=== PATIENT | male | born 1935 | race Caucasian/White ===

== ENCOUNTER 2017-02-25 17:36 | Inpatient (IN) | payer MEDICARE, OTHER ==
[~2017-02-25] VITALS: Ht 167.6 cm; Wt 101.2 kg
[2017-02-25] MEDS ORDERED: FUROSEMIDE 40 MG/4 ML VIAL IV ONE (18:30)
[2017-02-25 18:32] LABS: BASOPHILS # (AUTO) 0.1 /CMM (0.0-0.2); BASOPHILS % (AUTO) 0.6 % (0.0-2.0); EOSINOPHILS # (AUTO) 0.2 /CMM (0.0-0.7); HEMATOCRIT 38 % (39-51); HEMOGLOBIN 11.9 g/dL (13.5-17.5); LYMPHOCYTES # (AUTO) 1.8 /CMM (0.8-4.8); LYMPHOCYTES % (AUTO) 19.1 % (20.0-44.0); MEAN CORPUSCULAR HEMOGLOBIN 28 PG (26.0-33.0); MEAN CORPUSCULAR HGB CONC 32 g/dl (31.0-36.0); MEAN CORPUSCULAR VOLUME 89 fL (80-96); MONOCYTES # (AUTO) 0.8 /CMM (0.1-1.30); MONOCYTES % (AUTO) 8.1 % (2.0-12.0); NEUTROPHILS # (AUTO) 6.7 /CMM (1.8-8.9); NEUTROPHILS % (AUTO) 70.2 % (43.0-81.0); PLATELET COUNT (AUTO) 226 /CMM (150-450); RDW COEFFICIENT OF VARIATION 16.5 (11.5-15.0); RED BLOOD CELL COUNT(AUTO) 4.24 MIL/uL (4.5-6.0); WHITE BLOOD COUNT (AUTO) 9.6 K/uL (4.3-11.0)
[2017-02-25] MEDS ORDERED: FUROSEMIDE 40 MG/4 ML VIAL ONE (18:33)
[2017-02-25 18:36] LABS: CREATININE 1.4 mg/dL (0.6-1.3); POTASSIUM 3.8 mmol/L (3.5-5.1)
[2017-02-25 18:45] LABS: TROPONIN I 0.026 ng/mL (0.00-0.056)
[2017-02-25 18:50] LABS: ALBUMIN 3.7 g/dL (3.4-5.0); BILIRUBIN,DIRECT 0.1 mg/dL (0.0-0.2); BILIRUBIN,TOTAL 0.6 mg/dL (0.2-1.0); TOTAL PROTEIN, SERUM 7.8 g/dL (6.4-8.2)
[2017-02-25 19:08] LABS: INR 1.03 (0.87-1.13)
--- NOTE | 2017-02-25 19:10 | NUR ---
RECEIVED REPORT FROM GAMA PEOPLES. PT AOX3 TAJIK SPEAKING. RR EVEN AND UNLABORED. NO SOB NOTED AT THIS TIME. PT APPEARS TO BE COMFORTABLE.
--- NOTE | 2017-02-25 19:14 | NUR ---
AYNAA KATHLEEN AT BEDSIDE FOR EVAL.
[2017-02-25 20:00] VITALS: BP 134/85
[2017-02-25] MEDS ORDERED: ALBUTEROL HALF STRENGTH 1.25 MG/3 ML VIAL.NEB NEB PRN (20:00)
[2017-02-25] MEDS ORDERED: DEXTROSE 50%-WATER 50 ML DISP.SYRIN IV PRN (20:00)
[2017-02-25] MEDS ORDERED: ONDANSETRON HCL/PF 4 MG/2 ML VIAL IVP PRN (20:00)
[2017-02-25] MEDS ORDERED: TEMAZEPAM 15 MG CAPSULE PO PRN (20:00)
[2017-02-25] MEDS ORDERED: MAG HYDROX/AL HYDROX/SIMETH 30 ML UDC PO PRN (20:00)
[2017-02-25] MEDS ORDERED: MAGNESIUM HYDROXIDE 30 ML UDC PO PRN (20:00)
--- NOTE | 2017-02-25 20:15 | NUR ---
RN ADMITTING NOTES RECEIVED REPORT FROM ER, GAMA YOUNGBLOOD. Pt ARRIVED TO FLOOR VIA GURNEY. Pt IS AWAKE AND ALERT, IN BED. A/OX3, CHILEAN SPEAKING ONLY. NO S/S OF ACUTE DISTRESS OR SEVERE SOB NOTED. ON 2L NC. Pt IS MOBILE, AND AMBULATORY WITH WALKER. IV ACCESS ON R HAND #20G, SL. SAFETY MEASURES IN PLACE. BED LOW, LOCKED, HOB ELEVATED, SIDE RAILS UP, CALL LIGHT AND BEDSIDE TABLE WITHIN REACH. WILL CONTINUE TO MONITOR Pt THROUGHOUT THE NIGHT FOR SAFETY.
[2017-02-25 20:20] VITALS: BP 134/85
--- NOTE | 2017-02-25 22:00 | NUR ---
ACCUCHECK BG 207. ADMINISTERED 4UN OF INSULIN PER SLIDING SCALE. PROVIDED SNACKS AT BEDSIDE.
[2017-02-25] MEDS: BLOOD SUGAR DIAGNOSTIC 1 EACH STRIP IN SCH (22:56)
[2017-02-25] MEDS: FUROSEMIDE 100 MG/10 ML VIAL IV SCH (22:58)
[2017-02-25] MEDS: INSULIN REGULAR, HUMAN 100 UNIT/ML 3 ML VIAL SQ PRN (23:05)
--- NOTE | 2017-02-25 23:42 | NUR ---
Pt REFUSING RECINOS CATHETER INSERTION. SAID HE PREFERS TO USE HIS WALKER AND USE THE TOILET IN THE RESTROOM INSTEAD. EXPLAINED TO Pt THAT THE LASIX GIVEN EARLIER WILL MAKE HIM URINATE MUCH MORE, AND THAT FOR HIS SAFETY, PLACING A RECINOS CATHETER WOULD BE BETTER, BUT Pt STILL REFUSED THE RECINOS. PLACED BED SIDE COMMODE AND URINAL NEXT TO Pt INSTEAD. INFORMED Pt TO USE THEM IN CASE OF EMERGENCY IF HE CAN'T MAKE IT TO THE RESTROOM IN TIME.
[2017-02-26] VITALS: BP 113/63
[2017-02-26] MEDS: FUROSEMIDE 100 MG/10 ML VIAL IV SCH ×3 (03:29→14:17)
[2017-02-26 04:25] VITALS: BP 124/72
--- NOTE | 2017-02-26 06:30 | NUR ---
ACCUCHECK BG 141. ADMINISTERED 2UN OF INSULIN PER SLIDING SCALE.
--- NOTE | 2017-02-26 06:35 | NUR ---
RN CLOSING NOTES NO SIGNIFICANT CHANGES DURING THE NIGHT. NO S/S OF ACUTE DISTRESS OR SOB NOTED. ALL NEEDS MET AND ATTENDED TO. SAFETY MEASURES IN PLACE. WILL ENDORSE TO DAYSHIFT RN FOR Pt's CAROLYN. TELE READING AFIB 80's-90's.
[2017-02-26] MEDS: INSULIN REGULAR, HUMAN 100 UNIT/ML 3 ML VIAL SQ PRN ×3 (06:40→22:36)
[2017-02-26] MEDS: BLOOD SUGAR DIAGNOSTIC 1 EACH STRIP IN SCH ×4 (06:42→22:36)
[2017-02-26 06:45] LABS: BASOPHILS # (AUTO) 0.1 /CMM (0.0-0.2); BASOPHILS % (AUTO) 0.9 % (0.0-2.0); EOSINOPHILS # (AUTO) 0.2 /CMM (0.0-0.7); EOSINOPHILS % (AUTO) 2.8 % (0.0-6.0); HEMATOCRIT 38 % (39-51); HEMOGLOBIN 11.9 g/dL (13.5-17.5); LYMPHOCYTES # (AUTO) 1.9 /CMM (0.8-4.8); LYMPHOCYTES % (AUTO) 21.6 % (20.0-44.0); MEAN CORPUSCULAR HEMOGLOBIN 28 PG (26.0-33.0); MEAN CORPUSCULAR HGB CONC 32 g/dl (31.0-36.0); MEAN CORPUSCULAR VOLUME 89 fL (80-96); MONOCYTES # (AUTO) 0.7 /CMM (0.1-1.30); MONOCYTES % (AUTO) 7.9 % (2.0-12.0); NEUTROPHILS # (AUTO) 5.8 /CMM (1.8-8.9); NEUTROPHILS % (AUTO) 66.8 % (43.0-81.0); PLATELET COUNT (AUTO) 218 /CMM (150-450); RDW COEFFICIENT OF VARIATION 16.2 (11.5-15.0); RED BLOOD CELL COUNT(AUTO) 4.23 MIL/uL (4.5-6.0); WHITE BLOOD COUNT (AUTO) 8.6 K/uL (4.3-11.0)
[2017-02-26 06:51] LABS: TROPONIN I 0.033 ng/mL (0.00-0.056)
[2017-02-26 07:07] LABS: CREATININE 1.2 mg/dL (0.6-1.3); PHOSPHORUS 3.8 mg/dL (2.5-4.9); POTASSIUM 3.4 mmol/L (3.5-5.1)
[2017-02-26 07:08] LABS: THYROID STIMULATING HORMONE 5.738 uIU/mL (0.358-3.74)
[2017-02-26 07:21] LABS: DIGOXIN 0.58 ng/mL (0.90-2.00)
[2017-02-26] MEDS: PANTOPRAZOLE 40 MG TABLET.DR PO SCH (07:38)
[2017-02-26 08:00] VITALS: BP 122/69
--- NOTE | 2017-02-26 08:00 | NUR ---
RESIDENCY PROGRAM COORDINATOR AM NOTES RECEIVED PT AWAKE AND ALERT, IN BED. A/OX3, IRAQI SPEAKING ONLY. NO S/S OF ACUTE DISTRESS OR SEVERE SOB NOTED. ON 2L NC. Pt IS MOBILE, AND AMBULATORY WITH WALKER. IV ACCESS ON R HAND #20G, SL. SAFETY MEASURES IN PLACE. BED LOW, LOCKED, HOB ELEVATED, SIDE RAILS UP, CALL LIGHT AND BEDSIDE TABLE WITHIN REACH. WILL CONTINUE TO MONITOR Pt THROUGHOUT THE NIGHT FOR SAFETY.
[2017-02-26] MEDS: LEVOTHYROXINE SODIUM 75 MCG TABLET PO SCH (08:26)
[2017-02-26] MEDS ORDERED: FUROSEMIDE 80 MG TABLET PO SCH (09:00)
[2017-02-26] MEDS ORDERED: FUROSEMIDE 40 MG/4 ML VIAL IV SCH (09:00)
[2017-02-26] MEDS ORDERED: INSU100I4 SQ (09:06)
[2017-02-26] MEDS ORDERED: DIGO125T PO (09:06)
[2017-02-26] MEDS ORDERED: LEVO75TA7 PO (09:06)
[2017-02-26] MEDS ORDERED: WARF3TAB29 PO (09:06)
[2017-02-26] MEDS ORDERED: FURO-144 PO (09:06)
[2017-02-26] MEDS ORDERED: HYDR-4077 PO (09:06)
[2017-02-26] MEDS: POTASSIUM CHLORIDE 20 MEQ TAB.PRT.SR PO SCH ×3 (11:14→14:17)
--- NOTE | 2017-02-26 14:27 | NUR ---
PT ALREADY RECEIVED AND COMPLETED K DUR 20 MEQ PO X3 DOSES
[2017-02-26] MEDS ORDERED: POTASSIUM CHLORIDE 20 MEQ TAB.PRT.SR PO SCH (15:00)
[2017-02-26 16:00] VITALS: BP 125/62
[2017-02-26] MEDS ORDERED: WARFARIN SODIUM 1 MG TABLET PO SCH (17:00)
[2017-02-26] MEDS ORDERED: RIVAROXABAN 10 MG TABLET PO SCH (17:00)
[2017-02-26] MEDS: hydrALAZINE HCL 50 MG TABLET PO SCH (17:23)
[2017-02-26] MEDS: RIVAROXABAN 10 MG TABLET PO SCH (17:30)
[2017-02-26] MEDS: INSULIN LISPRO/ASPART 100 UNIT/ML CARTRIDGE SQ SCH (17:32)
--- NOTE | 2017-02-26 19:11 | NUR ---
PT RESTING IN BED DENYING ANY PAIN OR DISTRESS.
--- NOTE | 2017-02-26 19:30 | NUR ---
MS RN NOTES RECEIVED PT IN BED, ASLEEP, EASY TO AROUSE. NO ACUTE RESP. DISTRESS NOTED. ALERT AND ORIENTED. RIGHT HAND IV ACCESS NOTED, INTACT AND PATENT. CLEAN AND DRY. WILL CONT. TO MONITOR.
[2017-02-26 20:00] VITALS: BP 101/51
[2017-02-27] MEDS: PANTOPRAZOLE 40 MG TABLET.DR PO SCH (06:11)
[2017-02-27] MEDS: LEVOTHYROXINE SODIUM 75 MCG TABLET PO SCH (06:11)
[2017-02-27] MEDS: BLOOD SUGAR DIAGNOSTIC 1 EACH STRIP IN SCH ×4 (06:11→22:00)
[2017-02-27] MEDS: ACETAMINOPHEN 325 MG TABLET PO PRN (06:15)
[2017-02-27 06:38] LABS: BASOPHILS # (AUTO) 0.1 /CMM (0.0-0.2); BASOPHILS % (AUTO) 0.9 % (0.0-2.0); EOSINOPHILS # (AUTO) 0.4 /CMM (0.0-0.7); EOSINOPHILS % (AUTO) 3.8 % (0.0-6.0); HEMATOCRIT 38 % (39-51); LYMPHOCYTES # (AUTO) 2.2 /CMM (0.8-4.8); LYMPHOCYTES % (AUTO) 20.3 % (20.0-44.0); MEAN CORPUSCULAR HEMOGLOBIN 28 PG (26.0-33.0); MEAN CORPUSCULAR HGB CONC 32 g/dl (31.0-36.0); MEAN CORPUSCULAR VOLUME 89 fL (80-96); MONOCYTES # (AUTO) 0.8 /CMM (0.1-1.30); MONOCYTES % (AUTO) 7.4 % (2.0-12.0); NEUTROPHILS # (AUTO) 7.2 /CMM (1.8-8.9); NEUTROPHILS % (AUTO) 67.6 % (43.0-81.0); PLATELET COUNT (AUTO) 242 /CMM (150-450); RDW COEFFICIENT OF VARIATION 16.1 (11.5-15.0); RED BLOOD CELL COUNT(AUTO) 4.25 MIL/uL (4.5-6.0); WHITE BLOOD COUNT (AUTO) 10.6 K/uL (4.3-11.0)
[2017-02-27 06:58] LABS: ALBUMIN 3.3 g/dL (3.4-5.0); BILIRUBIN,TOTAL 0.6 mg/dL (0.2-1.0); CALCIUM, SERUM 8.7 mg/dL (8.5-10.1); CREATININE 1.4 mg/dL (0.6-1.3); MAGNESIUM 1.6 mg/dL (1.8-2.4); PHOSPHORUS 3.5 mg/dL (2.5-4.9); TOTAL PROTEIN, SERUM 7.1 g/dL (6.4-8.2)
--- NOTE | 2017-02-27 07:26 | NUR ---
MS RN NOTES PT RESTING WELL. NO SIGNIFICANT CHANGES NOTED. ALL NEEDS ATTENDED PROMPTLY. WILL ENDORSE TO THE NEXT SHIFT.
[2017-02-27] MEDS ORDERED: LEVOTHYROXINE SODIUM 75 MCG TABLET PO SCH (07:30)
[2017-02-27 08:00] VITALS: BP 121/68
--- NOTE | 2017-02-27 08:00 | NUR ---
MS RN AM NOTES RECEIVED PT AWAKE AND ALERT, IN BED. A/OX3, GUAMANIAN SPEAKING ONLY. NO S/S OF ACUTE DISTRESS OR SEVERE SOB NOTED. ON 2L NC. Pt IS MOBILE, AND AMBULATORY WITH WALKER. IV ACCESS ON R HAND #20G, SL. SAFETY MEASURES IN PLACE. BED LOW, LOCKED, HOB ELEVATED, SIDE RAILS UP, WITH BRP ON HIS OWN USING HIS FWW.CALL LIGHT AND BEDSIDE TABLE WITHIN REACH. WILL CONTINUE TO MONITOR .
[2017-02-27] MEDS: INSULIN LISPRO/ASPART 100 UNIT/ML CARTRIDGE SQ SCH ×3 (08:34→17:28)
[2017-02-27] MEDS: hydrALAZINE HCL 50 MG TABLET PO SCH ×2 (08:35→17:00)
[2017-02-27] MEDS: DIGOXIN 0.125 MG TABLET PO SCH (08:36)
[2017-02-27] MEDS: FUROSEMIDE 40 MG TABLET PO SCH (08:36)
[2017-02-27] MEDS ORDERED: IV SET PRIMARY PUMP SET 1 EA INFUS.SET MC ONE (10:16)
[2017-02-27] MEDS: Magnesium 1GM/D5W 100ML PREMIX 100 ML IV SCH ×2 (10:22→12:51)
--- NOTE | 2017-02-27 10:38 | NUR ---
PT'S O2 SAT RANGES FROM 90-91%ON ROOM AIR AFTER ONE HOUR.PT AMBULATES TO THE TOILET ON HIS OWN USING FWW.PT DENIES DISTRESS WHILE IN ROOM AIR.
[2017-02-27 11:30] VITALS: BP_SYST 101; BP_SYST 109; BP_SYST 113; BP_DIAS 63; BP_DIAS 64; BP_DIAS 69
[2017-02-27] MEDS: INSULIN REGULAR, HUMAN 100 UNIT/ML 3 ML VIAL SQ PRN ×3 (12:54→23:15)
[2017-02-27 16:00] VITALS: BP 107/62
[2017-02-27 17:11] VITALS: BP 107/62
[2017-02-27] MEDS: RIVAROXABAN 10 MG TABLET PO SCH (17:30)
--- NOTE | 2017-02-27 18:55 | NUR ---
PT SITTING IN BED WITH O2 SAT OF 90-91% ON ROOM AIR DENYING ANY PAIN OR DISTRESS.
--- NOTE | 2017-02-27 19:15 | NUR ---
MS/SHREDDED FILLER MACHINE WRAPPER LAYER; RECEIVED PT FROM THE DAY SHIFT RN FOR CONTINUITY OF CARE. AT THIS TIME PT. IN BED SLEEPING. BREATHING NON LABORED. NO S/S DISTRESS. BED ON LOWER POSITION AND LOCKED FOR SAFETY. SIDE RAILS ARE UP FOR SAFETY. HL INTACT ON RH. CONTINUE TO MONITOR. CALL LIGHT WITHIN REACH.
[2017-02-27] MEDS ORDERED: RIVA10TA PO (19:37)
[2017-02-27] MEDS ORDERED: GABA100C PO (19:37)
[2017-02-27 20:00] VITALS: BP 105/54
--- NOTE | 2017-02-27 20:00 | NUR ---
MS/WAREHOUSE INCENTIVE SELECTOR; CHARGE NURSE INFORMED WITH NEW ORDER FOR DC. I TOLD THE PT ABOUT THE DC ORDER TONIGHT BUT PT REFUSED HE SAID THAT THE MD TOLD HIM TO DC TOMORROW. CN SAID TO CALL MD.
--- NOTE | 2017-02-27 20:10 | NUR ---
MS/TECHNICAL STAFF ENGINEER; I PLACED A CALL TO MAHNAZ MORAN NP AND I NOTIFIED HIM THAT DR. MAJOR WITH ORDER FOR DC BUT PT REFUSED BECAUSE PT SAID THE MD TOLD HIM TO GO HOME TOMORROW AND MAHNAZ MORAN NP SAID OK.
[2017-02-27] MEDS ORDERED: GABAPENTIN 100 MG CAPSULE PO SCH (22:00)
--- NOTE | 2017-02-27 22:00 | NUR ---
MS/PAPER PRODUCTS PRINTER; BS 156 COVERED WITH REGULAR INSULIN 2 UNITS SQ.
[2017-02-28] MEDS: ACETAMINOPHEN 325 MG TABLET PO PRN (05:47)
[2017-02-28 06:00] VITALS: BP_SYST 118; BP_SYST 130; BP_SYST 138; BP_DIAS 63; BP_DIAS 73; BP_DIAS 76
--- NOTE | 2017-02-28 06:00 | NUR ---
MS/APPLE PACKING HEADER; BS 140 COVERED WITH REGULAR INSULIN 2 UNITS SQ.
[2017-02-28] MEDS: BLOOD SUGAR DIAGNOSTIC 1 EACH STRIP IN SCH ×2 (06:15→12:40)
[2017-02-28] MEDS: INSULIN REGULAR, HUMAN 100 UNIT/ML 3 ML VIAL SQ PRN ×2 (06:29→12:48)
[2017-02-28 06:31] LABS: BASOPHILS # (AUTO) 0.1 /CMM (0.0-0.2); BASOPHILS % (AUTO) 0.6 % (0.0-2.0); EOSINOPHILS # (AUTO) 0.3 /CMM (0.0-0.7); EOSINOPHILS % (AUTO) 3.2 % (0.0-6.0); HEMATOCRIT 38 % (39-51); HEMOGLOBIN 12.4 g/dL (13.5-17.5); LYMPHOCYTES # (AUTO) 2.2 /CMM (0.8-4.8); MEAN CORPUSCULAR HEMOGLOBIN 29 PG (26.0-33.0); MEAN CORPUSCULAR HGB CONC 32 g/dl (31.0-36.0); MEAN CORPUSCULAR VOLUME 88 fL (80-96); MONOCYTES # (AUTO) 0.7 /CMM (0.1-1.30); MONOCYTES % (AUTO) 7.4 % (2.0-12.0); NEUTROPHILS # (AUTO) 6.1 /CMM (1.8-8.9); NEUTROPHILS % (AUTO) 64.8 % (43.0-81.0); PLATELET COUNT (AUTO) 226 /CMM (150-450); RDW COEFFICIENT OF VARIATION 15.8 (11.5-15.0); RED BLOOD CELL COUNT(AUTO) 4.32 MIL/uL (4.5-6.0); WHITE BLOOD COUNT (AUTO) 9.4 K/uL (4.3-11.0)
[2017-02-28 06:35] LABS: CALCIUM, SERUM 8.7 mg/dL (8.5-10.1); CREATININE 1.4 mg/dL (0.6-1.3); MAGNESIUM 2.2 mg/dL (1.8-2.4); POTASSIUM 4.1 mmol/L (3.5-5.1)
--- NOTE | 2017-02-28 07:00 | NUR ---
MS/SCHOOL TRANSPORTATION DIRECTOR; SLEPT FAIRLY. BREATHING NON LABORED. WAS GIVEN TYLENOL 650 MG PO AT 0547 FOR GEN. PAIN. WILL ENDORSE TO THE DAY SHIFT NURSE.
--- NOTE | 2017-02-28 07:41 | NUR ---
RN OPEN NOTES RECEIVED REPORT FROM BUSINESS PROCESS MODELER NURSE. WILL CONTINUE TO MONITOR AND ASSESS PATIENT THROUGHOUT MY SHIFT
[2017-02-28 08:00] VITALS: BP 113/68
[2017-02-28 08:12] VITALS: BP 113/68
[2017-02-28] MEDS: hydrALAZINE HCL 50 MG TABLET PO SCH (08:12)
[2017-02-28] MEDS: PANTOPRAZOLE 40 MG TABLET.DR PO SCH (08:12)
[2017-02-28] MEDS: FUROSEMIDE 40 MG TABLET PO SCH (08:12)
[2017-02-28] MEDS: LEVOTHYROXINE SODIUM 75 MCG TABLET PO SCH (08:13)
[2017-02-28] MEDS: DIGOXIN 0.125 MG TABLET PO SCH (08:14)
[2017-02-28] MEDS: INSULIN LISPRO/ASPART 100 UNIT/ML CARTRIDGE SQ SCH ×2 (08:17→12:43)
--- NOTE | 2017-02-28 15:06 | NUR ---
AUTOCAD DETAILER NOTES PATIENT DISCHARGE ORDERS RECEIVED AND CARRY OUT. ALL DISCHARGE INFO EXPLAINED TO DAUGHTERSADE. PERSONAL BELONGING WITH PATIENT AT TIME OF DISCHARGE. PATIENT VITAL SIGNS ARE STABLE. PATIENT IS BEING DISCHARGE IN A STABLE CONDITION. NO SIGNS AND SYMPTOMS OF DISTRESS. NEW MEDICATION WAS GIVEN TO DAUGHTER. IV SITE REMOVED. ID BAND REMOVED. PATIENT WAS TRANSPORTED TO [facility] WITH AN RN AND A MUD ANALYSIS WELL LOGGING CAPTAIN VIA A WHEELCHAIR. PATIENT TRANSPORTED HOME VIA A PRIVATE CARE ACCOMPANIED BY HIS DAUGHTERSADE.
== END 2017-02-28 15:00 | disposition home or self-care (01) | DRG 291 ==
LOC: ER 17:39 → TELE 19:26 → MED 02-26 09:18
PROVIDERS: ADMIT Nurse Practitioner Acute Care; ATTEND Nurse Practitioner Acute Care
DX: I13.0 Hypertensive heart and chronic kidney disease with heart failure and stage 1 through stage 4 chronic kidney disease, or unspecified chronic kidney disease (principal); I50.23 Acute on chronic systolic (congestive) heart failure; D68.59 Other primary thrombophilia; N17.9 Acute kidney failure, unspecified; E87.0 Hyperosmolality and hypernatremia; D64.9 Anemia, unspecified; E11.22 Type 2 diabetes mellitus with diabetic chronic kidney disease; N18.9 Chronic kidney disease, unspecified; I25.10 Atherosclerotic heart disease of native coronary artery without angina pectoris; I48.91 Unspecified atrial fibrillation; E66.01 Morbid (severe) obesity due to excess calories; Z68.36 Body mass index [BMI] 36.0-36.9, adult; Z95.1 Presence of aortocoronary bypass graft; J44.9 Chronic obstructive pulmonary disease, unspecified; M19.90 Unspecified osteoarthritis, unspecified site; E78.5 Hyperlipidemia, unspecified; E03.9 Hypothyroidism, unspecified; E87.6 Hypokalemia; M79.89 Other specified soft tissue disorders; F32.9 Major depressive disorder, single episode, unspecified; G47.33 Obstructive sleep apnea (adult) (pediatric); G62.9 Polyneuropathy, unspecified; I34.0 Nonrheumatic mitral (valve) insufficiency; Z79.01 Long term (current) use of anticoagulants; Z87.891 Personal history of nicotine dependence; Z98.84 Bariatric surgery status
CPT/HCPCS: 36415; 71010-TC; 80048-TC; 80053-TC; 80061-TC; 80076-TC; 80162-TC; 82306; 82962-TC; 83735-TC; 83880; 84100-TC; 84443-TC; 84484-TC; 85025-TC; 85730-TC; 87081-TC; 93970-TC; 94799-TC; 97001-TC; 97003-TC; A4606; J1815; J1940; J3475; Z7610

== ENCOUNTER 2017-03-27 13:39 | Inpatient (IN) | payer MEDICARE, OTHER ==
[~2017-03-27] VITALS: Ht 172.7 cm; Wt 88.9 kg
[~2017-03-27 13:39] MED LIST: DIGO125T PO; FURO-144 PO; GABA100C PO; HYDR-4077 PO; INSU100I4 SQ; LEVO75TA7 PO; RIVA10TA PO
--- NOTE | 2017-03-27 13:47 | NUR ---
BIB FAMILY DUE TO SOB AND BLE EDEMA X 4 DAYS. PATIENT IS AAO3. APPEARS IN NO APPARENT DISTRESS, RESPIRATION EVEN AND UNLABORED. SKIN IS WARM TO TOUCH AND NON DIAOPHORETIC. PATIENT AFEBRILE. VSS. GOWNED PATIENT AND PLACED ON TELE MONITOR.
[2017-03-27 14:14] LABS: BASOPHILS % (AUTO) 0.5 % (0.0-2.0); EOSINOPHILS # (AUTO) 0.2 /CMM (0.0-0.7); EOSINOPHILS % (AUTO) 1.8 % (0.0-6.0); HEMATOCRIT 39 % (39-51); HEMOGLOBIN 12.4 g/dL (13.5-17.5); LYMPHOCYTES # (AUTO) 1.1 /CMM (0.8-4.8); LYMPHOCYTES % (AUTO) 11.1 % (20.0-44.0); MEAN CORPUSCULAR HEMOGLOBIN 28 PG (26.0-33.0); MEAN CORPUSCULAR HGB CONC 32 g/dl (31.0-36.0); MEAN CORPUSCULAR VOLUME 88 fL (80-96); MONOCYTES # (AUTO) 0.4 /CMM (0.1-1.30); MONOCYTES % (AUTO) 3.9 % (2.0-12.0); NEUTROPHILS # (AUTO) 7.8 /CMM (1.8-8.9); NEUTROPHILS % (AUTO) 82.7 % (43.0-81.0); PLATELET COUNT (AUTO) 217 /CMM (150-450); RDW COEFFICIENT OF VARIATION 14.9 (11.5-15.0); RED BLOOD CELL COUNT(AUTO) 4.43 MIL/uL (4.5-6.0); WHITE BLOOD COUNT (AUTO) 9.5 K/uL (4.3-11.0)
[2017-03-27 14:25] LABS: CARBON DIOXIDE 28 mmol/L (21-32); CHLORIDE 107 mmol/L (98-107); CREATININE 1.5 mg/dL (0.6-1.3); GLUCOSE 283 mg/dL (74-106); POTASSIUM 4.1 mmol/L (3.5-5.1); SODIUM SERUM 143 mmol/L (136-145); UREA NITROGEN, BLOOD 43 mg/dL (7-18)
[2017-03-27 14:29] LABS: INR 1.19 (0.87-1.13); PROTHROMBIN TIME 12.5 SECS (9.5-12.7)
[2017-03-27 14:33] LABS: TROPONIN I 0.033 ng/mL (0.00-0.056)
--- NOTE | 2017-03-27 14:34 | NUR ---
CALLED NURSING CHEMICAL INSPECTOR FOR TELE BED
--- NOTE | 2017-03-27 14:39 | NUR ---
Patient will go to TELE 111, GAMA Jones is the primary nurse.
[2017-03-27 14:41] LABS: ALANINE AMINOTRANSFERASE 10 U/L (12-78); ALBUMIN 3.5 g/dL (3.4-5.0); ALKALINE PHOSPHATASE 97 U/L (46-116); ASPARTATE AMINOTRANSFERASE 12 U/L (15-37); B-TYPE NATRIURETIC PEPTIDE 2911 PG/ML (0-125); BILIRUBIN,DIRECT 0.1 mg/dL (0.0-0.2); BILIRUBIN,TOTAL 0.6 mg/dL (0.2-1.0); TOTAL PROTEIN, SERUM 7.8 g/dL (6.4-8.2)
[2017-03-27] MEDS ORDERED: ERGO50003 PO (14:49)
[2017-03-27] MEDS ORDERED: ALBU2.5V13 IH (14:49)
[2017-03-27] MEDS ORDERED: INSU3INS6 SQ (14:49)
[2017-03-27] MEDS ORDERED: SPIR25TA4 PO (14:49)
[2017-03-27] MEDS ORDERED: SITA1TAB6 PO (14:49)
[2017-03-27] MEDS ORDERED: PANT40TA4 PO (14:49)
[2017-03-27] MEDS ORDERED: MULT1TAB62 PO (14:49)
[2017-03-27] MEDS ORDERED: ACET-868 PO (14:49)
[2017-03-27] MEDS ORDERED: BISA10SU8 RC (14:49)
[2017-03-27] MEDS ORDERED: MAGN400O6 PO (14:49)
[2017-03-27] MEDS ORDERED: DILT300C57 PO (14:49)
[2017-03-27] MEDS ORDERED: FENO200C PO (14:49)
[2017-03-27] MEDS ORDERED: MEMA14CA PO (14:49)
[2017-03-27] MEDS ORDERED: DEXL60CA3 PO (14:49)
[2017-03-27] MEDS ORDERED: ATOR10TA PO (14:49)
[2017-03-27] MEDS ORDERED: ASPI-991 PO (14:49)
[2017-03-27] MEDS ORDERED: IBUP-1481 PO (14:49)
[2017-03-27] MEDS ORDERED: DOCU-25 PO (14:49)
[2017-03-27] MEDS ORDERED: MISO200T PO (14:49)
[2017-03-27] MEDS ORDERED: COLC0.6T69 PO (14:56)
[2017-03-27] MEDS ORDERED: LIRA0.6P2 SQ (14:56)
[2017-03-27] MEDS ORDERED: VITA1CAP PO (14:56)
[2017-03-27] MEDS ORDERED: ALLO100T PO (14:56)
[2017-03-27] MEDS ORDERED: VALS80TA2 PO (14:56)
[2017-03-27] MEDS ORDERED: CALC-718 PO (14:56)
[2017-03-27] MEDS ORDERED: CARV6.252 PO (14:56)
[2017-03-27] MEDS ORDERED: TAMS-12 PO (14:56)
[2017-03-27] MEDS ORDERED: WARF3TAB6 PO (14:56)
[2017-03-27] MEDS ORDERED: TRAM50TA2 PO (14:56)
[2017-03-27] MEDS ORDERED: FUROSEMIDE 40 MG/4 ML VIAL IV ONE (15:00)
[2017-03-27] MEDS ORDERED: ASPIRIN 81 MG TAB.CHEW PO ONE (15:00)
--- NOTE | 2017-03-27 15:10 | NUR ---
Goyo zapata in ED - 03/27/17 at 1511 by ANNE MARIE CALLED RADIOLOGY FOR GALLBLADDER ULTRASOUND
--- NOTE | 2017-03-27 15:14 | NUR ---
PAGED SOIL SAMPLER PANEL MD DR PRINCE
[2017-03-27] MEDS ORDERED: FUROSEMIDE 40 MG/4 ML VIAL ONE (15:15)
[2017-03-27] MEDS ORDERED: ASPIRIN 81 MG TAB.CHEW ONE (15:15)
--- NOTE | 2017-03-27 15:18 | NUR ---
DR PRINCE ON THE PHONE WITH DR TOMAS
--- NOTE | 2017-03-27 15:24 | NUR ---
REPORT GIVEN TO JIMMY MALLOY FOR CAROLYN
[2017-03-27 16:00] VITALS: BP 147/90
[2017-03-27] MEDS ORDERED: ONDANSETRON HCL/PF 4 MG/2 ML VIAL IVP PRN (16:00)
[2017-03-27] MEDS ORDERED: MAG HYDROX/AL HYDROX/SIMETH 30 ML UDC PO PRN (16:00)
[2017-03-27] MEDS ORDERED: Z GUARD REMEDY 2 OZ OINT TP PRN (16:00)
[2017-03-27] MEDS ORDERED: ZOLPIDEM TARTRATE 5 MG TABLET PO PRN (16:00)
[2017-03-27] MEDS ORDERED: BISACODYL SUPP (10 MG) 10 MG/SUPP.RECT SUPP.RECT RC PRN (16:30)
[2017-03-27] MEDS ORDERED: ALBUTEROL FS 2.5 MG/0.5 ML VIAL.NEB IH PRN (16:30)
[2017-03-27] MEDS ORDERED: TRAMADOL HCL 50 MG TABLET PO PRN (16:30)
[2017-03-27] MEDS ORDERED: DEXTROSE 50%-WATER 50 ML DISP.SYRIN IV PRN (16:30)
[2017-03-27] MEDS: DOCUSATE SODIUM 100 MG CAPSULE PO SCH (17:30)
[2017-03-27] MEDS: BLOOD SUGAR DIAGNOSTIC 1 EACH STRIP VI SCH ×2 (17:30→21:34)
[2017-03-27] MEDS: FUROSEMIDE 40 MG/4 ML VIAL IV SCH (17:33)
[2017-03-27] MEDS: CARVEDILOL 6.25 MG TABLET PO SCH (17:33)
[2017-03-27] MEDS: hydrALAZINE HCL 50 MG TABLET PO SCH (17:34)
[2017-03-27] MEDS: ENOXAPARIN SODIUM 40 MG/0.4 ML DISP.SYRIN SQ SCH (17:46)
--- NOTE | 2017-03-27 17:58 | NUR ---
INITIAL APPRENTICE PAINTER HAND NOTE PT PRESENT TO TAMIA WITH SOB ON 4 L OF 02 , PT NOTED TO HAVE BILATERAL EDEMA PITTING x3 PAIN EXPRESSED DURING ASSESSMENT OF BILATERAL EXTREMITIES PAIN EXPRESSED AT A 10 ON A SCALE 0-10 . STATES INCREASE DURING MOVEMENT. PT HAS SCHEDULED PAIN MEDICATION. PT INITIAL ASSESSMENT COMPLETED VITAL SIGNS WITHIN NORMAL RANGE. 1 VOID IN THE BATHROOM SINCE ADMISSION TO THE UNIT , SKIN CLEAN DRY INTACT HOWEVER THERE IS NOTED INNER THIGH AND SCROTUM REDNESS NOTED WOUND CONSULT SUBMITTED NURSING STAFF WILL CONTINUE TO FOLLOW THE PATIENTS PROGRESS
--- NOTE | 2017-03-27 18:03 | NUR ---
END OF SHIFT CURTAIN FELLER BLINDSTITCH NOTE PT PRESENT TO TAMIA WITH SOB ON 4 L OF 02 , PT NOTED TO HAVE BILATERAL EDEMA PITTING x3 PAIN EXPRESSED DURING ASSESSMENT OF BILATERAL EXTREMITIES PAIN EXPRESSED AT A 10 ON A SCALE 0-10 . STATES INCREASE DURING MOVEMENT. PT HAS SCHEDULED PAIN MEDICATION. PT INTIAL ASSESSMENT COMPLETED VITAL SIGNS WITHIN NORMAL RANGE. 1 VOID IN THE BATHROOM SINCE ADMISSION TO THE UNIT 1615, SKIN CLEAN DRY INTACT HOWEVER THERE IS NOTED INNER THIGH AND SCROTUM REDNESS NOTED WOUND CONSULT SUBMITTED. ALL SCHEDULED MEDICATIONS ADMINISTERED NURSING STAFF WILL ENDORSE TO THE ON COMING SHIFT
[2017-03-27] MEDS: *INSULIN REGULAR(HUMULIN R)HUM 100 UNIT/ML VIAL SQ PRN ×2 (19:25→21:32)
--- NOTE | 2017-03-27 19:30 | NUR ---
RECEIVED PATIENT IN BED, DX- CHF- CHF CORE MEASURES IMPLEMENTED. PATIENT A&O, CONTROLLED A.FIB ON THE MONITORS/ ON 4 L NC BREATHING IS LABORED, SOB ON EXERTION EDUCATION/INSTRUCTIONS GIVEN. CONTINUE TO MONITOR
[2017-03-27 20:00] VITALS: BP 112/61
[2017-03-27] MEDS: GABAPENTIN 100 MG CAPSULE PO SCH (21:30)
[2017-03-28] VITALS: BP 113/64
[2017-03-28 04:00] VITALS: BP 94/43
--- NOTE | 2017-03-28 06:09 | NUR ---
patient is alert but non- compliant with his medications and treatments. unable to do strict I&O's - patient refused to use urinal
[2017-03-28] MEDS: INSULIN REGULAR, HUMAN 100 UNIT/ML 3 ML VIAL SQ PRN ×4 (06:31→21:33)
[2017-03-28 07:16] LABS: BASOPHILS # (AUTO) 0.1 /CMM (0.0-0.2); BASOPHILS % (AUTO) 0.6 % (0.0-2.0); EOSINOPHILS # (AUTO) 0.3 /CMM (0.0-0.7); EOSINOPHILS % (AUTO) 3.3 % (0.0-6.0); HEMATOCRIT 34 % (39-51); HEMOGLOBIN 11.1 g/dL (13.5-17.5); LYMPHOCYTES # (AUTO) 1.5 /CMM (0.8-4.8); LYMPHOCYTES % (AUTO) 16.9 % (20.0-44.0); MEAN CORPUSCULAR HEMOGLOBIN 28 PG (26.0-33.0); MEAN CORPUSCULAR HGB CONC 32 g/dl (31.0-36.0); MEAN CORPUSCULAR VOLUME 87 fL (80-96); MONOCYTES # (AUTO) 0.6 /CMM (0.1-1.30); NEUTROPHILS # (AUTO) 6.4 /CMM (1.8-8.9); NEUTROPHILS % (AUTO) 72.2 % (43.0-81.0); PLATELET COUNT (AUTO) 215 /CMM (150-450); RDW COEFFICIENT OF VARIATION 15.6 (11.5-15.0); RED BLOOD CELL COUNT(AUTO) 3.92 MIL/uL (4.5-6.0); WHITE BLOOD COUNT (AUTO) 8.8 K/uL (4.3-11.0)
[2017-03-28 07:30] LABS: CALCIUM, SERUM 8.6 mg/dL (8.5-10.1); CARBON DIOXIDE 28 mmol/L (21-32); CHLORIDE 108 mmol/L (98-107); CREATININE 1.3 mg/dL (0.6-1.3); GLUCOSE 150 mg/dL (74-106); MAGNESIUM 1.8 mg/dL (1.8-2.4); PHOSPHORUS 4.3 mg/dL (2.5-4.9); POTASSIUM 3.8 mmol/L (3.5-5.1); SODIUM SERUM 146 mmol/L (136-145); UREA NITROGEN, BLOOD 39 mg/dL (7-18)
[2017-03-28] MEDS: ACETAMINOPHEN 325 MG TABLET PO PRN (07:58)
[2017-03-28] MEDS: BLOOD SUGAR DIAGNOSTIC 1 EACH STRIP VI SCH ×4 (07:58→21:31)
[2017-03-28] MEDS: PANTOPRAZOLE 40 MG TABLET.DR PO SCH (07:58)
[2017-03-28] MEDS: LEVOTHYROXINE SODIUM 75 MCG TABLET PO SCH (07:59)
[2017-03-28 08:00] VITALS: BP 115/59
[2017-03-28] MEDS: FUROSEMIDE 40 MG/4 ML VIAL IV SCH ×4 (08:02→21:22)
[2017-03-28] MEDS: ATORVASTATIN 10 MG TABLET PO SCH (08:02)
[2017-03-28] MEDS: VALSARTAN 80 MG TABLET PO SCH (08:03)
[2017-03-28] MEDS: CARVEDILOL 6.25 MG TABLET PO SCH ×2 (08:03→16:37)
[2017-03-28] MEDS: hydrALAZINE HCL 50 MG TABLET PO SCH ×2 (08:03→16:38)
[2017-03-28] MEDS: ASPIRIN EC 81 MG TABLET.DR PO SCH (08:03)
[2017-03-28] MEDS: ALLOPURINOL 100 MG TABLET PO SCH (08:04)
[2017-03-28] MEDS: TAMSULOSIN 0.4 MG CAP.SR.24H PO SCH (08:04)
[2017-03-28] MEDS: DOCUSATE SODIUM 100 MG CAPSULE PO SCH ×2 (08:04→16:37)
[2017-03-28] MEDS: DILTIAZEM HCL CD 300 MG PO SCH (08:05)
--- NOTE | 2017-03-28 10:28 | NUR ---
RN NOTE DR. GIBBS PRESENT ON UNIT INFORMED OF PVC'S AT 0900 AND AFIB WITH BBB. INFORMED THAT PATIENT IN NON-COMPLIANT WITH MEASURING STRICT I+O. INFORMED OF 10/10 BL LE PAIN AND NON-COMPLIANCE WITH ELEVATING LE. CONFIRMED OK TO GIVE COREG AND DIGOXIN TOGETHER.
[2017-03-28 12:00] VITALS: BP 98/45
[2017-03-28] MEDS: DIGOXIN 0.125 MG TABLET PO SCH (12:35)
[2017-03-28] MEDS: HYDROCODONE/APAP 5/325MG 1 EACH TABLET PO PRN (14:56)
--- NOTE | 2017-03-28 14:57 | NUR ---
08/06 HEAD PAIN, BP 122/63, HR 82, NORCO ADMINISTERED
[2017-03-28 16:00] VITALS: BP 116/58
--- NOTE | 2017-03-28 19:33 | NUR ---
End of shift breathing and loc stable. all needs met. call light in reach.
--- NOTE | 2017-03-28 19:48 | NUR ---
TEL RN NOTES RECEIVED PT, A/OX4 ON NC @ 4L, AFIB CONTROLLED, NO APPARENT DISTRESS NOTED OR C/O OF PAIN, WITH BPR WITH ASSIST ALL NEEDS ATTENDED AT THIS TIME CLEAN WITH CALL LIGHT WITHIN REACH.
[2017-03-28 20:00] VITALS: BP 120/57
[2017-03-28] MEDS: ENOXAPARIN SODIUM 40 MG/0.4 ML DISP.SYRIN SQ SCH (21:21)
[2017-03-28] MEDS: GABAPENTIN 100 MG CAPSULE PO SCH (23:19)
--- NOTE | 2017-03-28 23:19 | NUR ---
GABAPENTIN WAS GIVEN AAT RIGHT TIME FORGOT TO DOCUMENT
[2017-03-29] VITALS: BP 91/52
[2017-03-29] MEDS: ACETAMINOPHEN 325 MG TABLET PO PRN (03:33)
--- NOTE | 2017-03-29 03:35 | NUR ---
PT C/O OF BI LAT LEG PAIN 5/10 [id number] PO GIVEN PRN REQUESTED BY PT, WITH BI LAT LE EDEMA.
[2017-03-29 04:00] VITALS: BP 94/37
[2017-03-29 06:40] LABS: BASOPHILS # (AUTO) 0.1 /CMM (0.0-0.2); BASOPHILS % (AUTO) 0.5 % (0.0-2.0); EOSINOPHILS # (AUTO) 0.2 /CMM (0.0-0.7); EOSINOPHILS % (AUTO) 2.2 % (0.0-6.0); HEMATOCRIT 33 % (39-51); HEMOGLOBIN 10.9 g/dL (13.5-17.5); LYMPHOCYTES # (AUTO) 1.5 /CMM (0.8-4.8); LYMPHOCYTES % (AUTO) 15.9 % (20.0-44.0); MEAN CORPUSCULAR HEMOGLOBIN 29 PG (26.0-33.0); MEAN CORPUSCULAR HGB CONC 33 g/dl (31.0-36.0); MEAN CORPUSCULAR VOLUME 87 fL (80-96); MONOCYTES # (AUTO) 0.6 /CMM (0.1-1.30); NEUTROPHILS # (AUTO) 7.1 /CMM (1.8-8.9); NEUTROPHILS % (AUTO) 75.4 % (43.0-81.0); PLATELET COUNT (AUTO) 210 /CMM (150-450); RDW COEFFICIENT OF VARIATION 15.5 (11.5-15.0); RED BLOOD CELL COUNT(AUTO) 3.79 MIL/uL (4.5-6.0); WHITE BLOOD COUNT (AUTO) 9.4 K/uL (4.3-11.0)
[2017-03-29] MEDS: BLOOD SUGAR DIAGNOSTIC 1 EACH STRIP VI SCH ×4 (06:45→21:58)
[2017-03-29] MEDS: LEVOTHYROXINE SODIUM 75 MCG TABLET PO SCH ×2 (06:45→08:38)
[2017-03-29] MEDS: PANTOPRAZOLE 40 MG TABLET.DR PO SCH ×2 (06:45→08:38)
[2017-03-29 06:49] LABS: ALANINE AMINOTRANSFERASE 16 U/L (12-78); ALBUMIN 3.2 g/dL (3.4-5.0); ALKALINE PHOSPHATASE 80 U/L (46-116); ASPARTATE AMINOTRANSFERASE 12 U/L (15-37); BILIRUBIN,TOTAL 0.6 mg/dL (0.2-1.0); CALCIUM, SERUM 8.4 mg/dL (8.5-10.1); CARBON DIOXIDE 29 mmol/L (21-32); CHLORIDE 105 mmol/L (98-107); CREATININE 1.8 mg/dL (0.6-1.3); GLUCOSE 187 mg/dL (74-106); MAGNESIUM 1.7 mg/dL (1.8-2.4); PHOSPHORUS 3.9 mg/dL (2.5-4.9); SODIUM SERUM 141 mmol/L (136-145); TOTAL PROTEIN, SERUM 7.3 g/dL (6.4-8.2); UREA NITROGEN, BLOOD 48 mg/dL (7-18)
--- NOTE | 2017-03-29 06:49 | NUR ---
BS AT 649AM 170 WILL ENDORSE FOR COVERAGE TO BE GIVEN BY AM NURSE WHEN B/F IS READY
[2017-03-29 06:54] LABS: TROPONIN I 0.028 ng/mL (0.00-0.056)
--- NOTE | 2017-03-29 07:15 | NUR ---
RECEIVED PATIENT IN BED, DX- CHF- CHF CORE MEASURES IMPLEMENTED. PATIENT A&O, CONTROLLED A.FIB ON THE MONITORS/ ON 4 L NC BREATHING IS LABORED, SOB ON EXERTION EDUCATION/INSTRUCTIONS GIVEN.SAFETY MEASURES IN PLACE.CONTINUE TO MONITOR
--- NOTE | 2017-03-29 07:23 | NUR ---
ENDORSED PT IN STABLE CONDITION,NO C/O OF PAIN WITH BI LAT LE EDEMA ENCOURAGED TO ELEVATE EXTREMITY, NO C/O OF SOB, ALL AM CARE WITH ASSIST,ALL NEEDS ATTENDED.
[2017-03-29 08:00] VITALS: BP 94/58
--- NOTE | 2017-03-29 08:08 | NUR ---
WOUND CARE CONSULT: PT PRESENTS WITH 4+ PITTING EDEMA TO LOWER LEGS AND RASH WITH ODOR TO GROIN, INNER THIGHS, PERINEUM. RECOMMENDATIONS MADE FOR RASH AND SKIN PROTECTION. DISCUSSED WITH NURSING STAFF. PT ABLE TO ASSIST WITH TURNING AND REPOSITIONING IN BED. WILL SEE PRN. BAKER IN AGREEMENT WITH PLAN OF CARE. Addendum: 03/29/17 at 0809 by DINA SALGADO WNDNU Amended: Links added.
[2017-03-29] MEDS: ATORVASTATIN 10 MG TABLET PO SCH (08:37)
[2017-03-29] MEDS: FUROSEMIDE 100 MG/10 ML VIAL IV SCH ×3 (08:37→17:32)
[2017-03-29] MEDS: ALLOPURINOL 100 MG TABLET PO SCH (08:37)
[2017-03-29] MEDS: TAMSULOSIN 0.4 MG CAP.SR.24H PO SCH (08:37)
[2017-03-29] MEDS: ASPIRIN EC 81 MG TABLET.DR PO SCH (08:37)
[2017-03-29] MEDS: DOCUSATE SODIUM 100 MG CAPSULE PO SCH ×2 (08:37→17:31)
[2017-03-29] MEDS: VALSARTAN 80 MG TABLET PO SCH (08:38)
[2017-03-29] MEDS: CARVEDILOL 6.25 MG TABLET PO SCH ×2 (08:39→17:31)
[2017-03-29] MEDS: DILTIAZEM HCL CD 300 MG PO SCH (08:39)
[2017-03-29] MEDS: CLOTRIMAZOLE 1% 15 GM TUBE TP SCH ×2 (09:00→17:31)
[2017-03-29] MEDS ORDERED: SECONDARY IV SET 1 EA INFUS.SET MC ONE (10:49)
[2017-03-29] MEDS ORDERED: IV SET PRIMARY PUMP SET 1 EA INFUS.SET MC ONE (10:56)
[2017-03-29] MEDS ORDERED: IV NS 0.9% 250 ML IV ONE (10:56)
[2017-03-29] MEDS ORDERED: Magnesium 1GM/D5W 100ML PREMIX 100 ML IV SCH (11:00)
[2017-03-29 12:00] VITALS: BP 96/57
[2017-03-29] MEDS: DIGOXIN 0.125 MG TABLET PO SCH (12:09)
[2017-03-29] MEDS: INSULIN REGULAR, HUMAN 100 UNIT/ML 3 ML VIAL SQ PRN (12:46)
[2017-03-29 16:00] VITALS: BP_SYST 79; BP_SYST 90; BP_DIAS 38; BP_DIAS 45
[2017-03-29 20:00] VITALS: BP_SYST 92; BP_SYST 99; BP_DIAS 38; BP_DIAS 45
--- NOTE | 2017-03-29 20:00 | NUR ---
RECEIVED PT ASLEEP WITH AFIB, NO C/O OF SOB CLEAN AND DRY ALL NEEDS ATTENDED WITH BPR WITH ASSIST ALL NEEDS ATTENDED.
[2017-03-29] MEDS: GABAPENTIN 100 MG CAPSULE PO SCH (21:59)
[2017-03-29] MEDS: ENOXAPARIN SODIUM 40 MG/0.4 ML DISP.SYRIN SQ SCH (22:00)
[2017-03-29] MEDS: *INSULIN REGULAR(HUMULIN R)HUM 100 UNIT/ML VIAL SQ PRN (22:07)
[2017-03-30] VITALS: BP 112/65
[2017-03-30] MEDS: HYDROCODONE/APAP 5/325MG 1 EACH TABLET PO PRN ×2 (02:54→09:58)
[2017-03-30 04:00] VITALS: BP 98/53
[2017-03-30] MEDS: BLOOD SUGAR DIAGNOSTIC 1 EACH STRIP VI SCH ×4 (06:15→22:18)
--- NOTE | 2017-03-30 06:25 | NUR ---
CLOSING TELE NOTES PT AWAKE, A/OX4,WITH AFIB AFLUTTER BBB HR 39-70, ON NC @ 4L SAT 95% ALL NEEDS ATTENDED ASSISTED WITH ALL ADLS, WITH BPR WITH ASSIST.
[2017-03-30 07:22] LABS: ALANINE AMINOTRANSFERASE 14 U/L (12-78); ALKALINE PHOSPHATASE 65 U/L (46-116); ASPARTATE AMINOTRANSFERASE 10 U/L (15-37); BILIRUBIN,TOTAL 0.5 mg/dL (0.2-1.0); CALCIUM, SERUM 8.4 mg/dL (8.5-10.1); CARBON DIOXIDE 29 mmol/L (21-32); CHLORIDE 102 mmol/L (98-107); CREATININE 1.9 mg/dL (0.6-1.3); GLUCOSE 166 mg/dL (74-106); MAGNESIUM 2.1 mg/dL (1.8-2.4); PHOSPHORUS 4.2 mg/dL (2.5-4.9); SODIUM SERUM 139 mmol/L (136-145); TOTAL PROTEIN, SERUM 6.8 g/dL (6.4-8.2); UREA NITROGEN, BLOOD 53 mg/dL (7-18)
[2017-03-30 07:23] LABS: BASOPHILS # (AUTO) 0.1 /CMM (0.0-0.2); BASOPHILS % (AUTO) 0.6 % (0.0-2.0); EOSINOPHILS # (AUTO) 0.2 /CMM (0.0-0.7); EOSINOPHILS % (AUTO) 2.1 % (0.0-6.0); HEMATOCRIT 32 % (39-51); HEMOGLOBIN 10.5 g/dL (13.5-17.5); LYMPHOCYTES # (AUTO) 1.9 /CMM (0.8-4.8); LYMPHOCYTES % (AUTO) 20.4 % (20.0-44.0); MEAN CORPUSCULAR HEMOGLOBIN 29 PG (26.0-33.0); MEAN CORPUSCULAR HGB CONC 33 g/dl (31.0-36.0); MEAN CORPUSCULAR VOLUME 88 fL (80-96); MONOCYTES # (AUTO) 0.7 /CMM (0.1-1.30); MONOCYTES % (AUTO) 7.7 % (2.0-12.0); NEUTROPHILS # (AUTO) 6.3 /CMM (1.8-8.9); NEUTROPHILS % (AUTO) 69.2 % (43.0-81.0); PLATELET COUNT (AUTO) 214 /CMM (150-450); RDW COEFFICIENT OF VARIATION 15.5 (11.5-15.0); RED BLOOD CELL COUNT(AUTO) 3.65 MIL/uL (4.5-6.0); WHITE BLOOD COUNT (AUTO) 9.1 K/uL (4.3-11.0)
--- NOTE | 2017-03-30 07:30 | NUR ---
INITIAL NOTE RECEIVED PATIENT RESTING IN BED, A+OX3 HUNGARIAN/ LAO SPEAKING. STATES HAVING 10 /10 PAIN TO BL LE. BREATHING EVEN AND UNLABORED WITH USE OF ACCESSORY MUSCLES. O2 SAT WNL, RR24. RAC IV CATHETER HALF WAY PULLED OUT AND SITE IS REDDENED. REMOVED, CLEANED, NO BLEEDING, NO INFILTRATION IN SURROUNDING SITE PATIENT IS NOT RECEIVING CONT' FLUIDS. DISCUSSED PLAN OF CARE. PATIENT IS PASSIVE AND GUARDED. CALL LIGHT IN REACH.
[2017-03-30 08:00] VITALS: BP 100/49
[2017-03-30] MEDS: INSULIN REGULAR, HUMAN 100 UNIT/ML 3 ML VIAL SQ PRN ×3 (08:52→16:36)
[2017-03-30] MEDS: TAMSULOSIN 0.4 MG CAP.SR.24H PO SCH (08:58)
[2017-03-30] MEDS: ASPIRIN EC 81 MG TABLET.DR PO SCH (08:59)
[2017-03-30] MEDS: DOCUSATE SODIUM 100 MG CAPSULE PO SCH ×2 (08:59→16:27)
[2017-03-30] MEDS: ATORVASTATIN 10 MG TABLET PO SCH (08:59)
[2017-03-30] MEDS: ALLOPURINOL 100 MG TABLET PO SCH (08:59)
[2017-03-30] MEDS: DILTIAZEM HCL CD 300 MG PO SCH (09:00)
[2017-03-30] MEDS: CARVEDILOL 6.25 MG TABLET PO SCH ×2 (09:00→16:30)
[2017-03-30] MEDS: VALSARTAN 80 MG TABLET PO SCH (09:00)
[2017-03-30] MEDS: CLOTRIMAZOLE 1% 15 GM TUBE TP SCH ×2 (09:02→16:28)
[2017-03-30] MEDS: METOLAZONE 2.5 MG TABLET PO SCH (09:57)
[2017-03-30] MEDS: FUROSEMIDE 80 MG TABLET PO SCH (09:57)
--- NOTE | 2017-03-30 10:01 | NUR ---
at this time bp 109/66, hr 90, o2 sat 95%, 10/10 pain BL LE pain and R shoulder pain, administered norco.
--- NOTE | 2017-03-30 10:20 | NUR ---
attempted iv access 3 times with charge nurse. poor venous access. 1 new order for midline
--- NOTE | 2017-03-30 11:01 | NUR ---
PT. REFUSED FOR CHEST XRAY, INFORMED NURSE ABOUT IT.
[2017-03-30 12:00] VITALS: BP 100/56
[2017-03-30] MEDS: DIGOXIN 0.125 MG TABLET PO SCH (12:41)
--- NOTE | 2017-03-30 13:15 | NUR ---
PATIENT REFUSED MORNING PORTABLE, NURSE WAS INFORMED
[2017-03-30 16:00] VITALS: BP 107/60
--- NOTE | 2017-03-30 17:30 | NUR ---
RN NOTE DR. GIBBS MADE AWARE OF CXR RESULTS
--- NOTE | 2017-03-30 19:01 | NUR ---
FALL 1730 FOUND PATIENT ON THE FLOOR MOANING. ACUTE CARE CERTIFIED NURSING ASSISTANT ASSISTING PATIENT TO USE WALKER TO GO TO THE BATHROOM. PATIENT WEARING NON-SLIP SOCKS. PATIENT SEEN BY OT AND DEEMED STABLE TO AMBULATE WITH WALKER AND NURSE OB. ACUTE CARE CERTIFIED NURSING ASSISTANT SAID TO HAVE EXPLAINED TO PATIENT TO WAIT SHE ARRANGED SAFE ENVIRONMENT FOR AMBULATING. PER ACUTE CARE CERTIFIED NURSING ASSISTANT, PATIENT STOOD UP WHEN ACUTE CARE CERTIFIED NURSING ASSISTANT BACK WAS TO PATIENT AND HE FEEL ON HIS L KNEE/FOOT. NO SKIN TEAR, POSSIBLE BRUISING. DID NOT FALL ON HEAD. PAGED DR. PRINCE AT 1740 FOR ORDERS. RECEIVED TELEPHONE ORDER AT 1820 FOR STAT L KNEE AND K FOOT XRAY AND SITTER. CALLED SAM LU TO INFORM AFMILY OF INCIDENT. THEY VERBALIZED UNDERSTANDING. WILL ENDORSE TO NIGHT NURSE. INCIDENT REPORT # [id number]
--- NOTE | 2017-03-30 19:38 | NUR ---
PER DAUGHTER PATIENT TAKES IBUPROFEN AND TYLENOL AT HOME, DAUGHTER REQUESTED NOT TO GIVE PATIENT NORCO OR TRAMADOL FOR SEVER PAIN. INFORMED DR. PRINCE WITH NEW TELPHONE ORDERS TO D/C NORCO AND TRAMADOL AND ADMIN PRN IBUPROFEN 400 MG Q6
--- NOTE | 2017-03-30 19:40 | NUR ---
PT IS SITTING IN A WHEELCHAIR AND REFUSING TO GO TO HIS BED. HE IS FIGHTING WITH THE STAFF. HAS TO BE TRIED LATER.
--- NOTE | 2017-03-30 19:46 | NUR ---
QUALITY IMPROVEMENT SPECIALIST NOTES RECEIVED PT UP ON CHAIR, WITH AFIB, ON NC @ 4L , NO DENIES ANY SOB OR ENCOURAGED TO GET BACK TO BED D/T LE EDEMA, PT INSIST WANTS TO STAY ON CHAIR AT THIS TIME.
[2017-03-30 20:00] VITALS: BP 99/64
[2017-03-30] MEDS: GABAPENTIN 100 MG CAPSULE PO SCH (21:24)
[2017-03-30] MEDS: ACETAMINOPHEN 325 MG TABLET PO PRN (21:24)
[2017-03-30] MEDS: ENOXAPARIN SODIUM 40 MG/0.4 ML DISP.SYRIN SQ SCH (21:27)
[2017-03-31] VITALS: BP 91/52
--- NOTE | 2017-03-31 01:26 | NUR ---
1830PM XR TECH CAME TO DO XR KNEE AND LT FOOT, PT REFUSED OFFERED X3 , EXPLAINED BENIFIT AND RISK, WILL ENDORSE TO AM NURSE TO F/U. DAUGHTER MADE AWARE.
[2017-03-31] MEDS ORDERED: IBUPROFEN 400 MG TABLET ONE (02:13)
[2017-03-31] MEDS: IBUPROFEN 400 MG TABLET PO PRN ×3 (02:17→16:09)
--- NOTE | 2017-03-31 02:45 | NUR ---
XR OF RT KNEE AND RT FOOT DONE AWAITING FOR RESULTS. IBUPROFEN 400MG GIVEN PRN BEFORE RT KNEE AND RT FOOT XR.
[2017-03-31 04:00] VITALS: BP 107/63
[2017-03-31] MEDS: ACETAMINOPHEN 325 MG TABLET PO PRN ×2 (04:40→11:37)
--- NOTE | 2017-03-31 06:30 | NUR ---
INDEPENDENT DISTRIBUTOR CLOSING NOTES ALL PT NEEDS ATTENDED, WITH AFIB, NC @ 4L, MEDICATED WITH TYLENOL AND IBUPROFEN D/T C/O OF BILAT LEG PAIN ,XR FOR RT KNEE AND RT FOOT INDICATE NO FX, BUT WITH OSTEOATHRITIES OF THE KNEE, PT NOTIFIED OF FINDING.
[2017-03-31] MEDS: PANTOPRAZOLE 40 MG TABLET.DR PO SCH (06:47)
[2017-03-31] MEDS: BLOOD SUGAR DIAGNOSTIC 1 EACH STRIP VI SCH ×4 (06:47→22:36)
[2017-03-31] MEDS: LEVOTHYROXINE SODIUM 75 MCG TABLET PO SCH (06:47)
[2017-03-31] MEDS: INSULIN REGULAR, HUMAN 100 UNIT/ML 3 ML VIAL SQ PRN ×2 (06:56→16:41)
[2017-03-31 07:21] LABS: CALCIUM, SERUM 8.4 mg/dL (8.5-10.1); CARBON DIOXIDE 30 mmol/L (21-32); CHLORIDE 102 mmol/L (98-107); CREATININE 1.8 mg/dL (0.6-1.3); GLUCOSE 180 mg/dL (74-106); PHOSPHORUS 3.8 mg/dL (2.5-4.9); POTASSIUM 3.9 mmol/L (3.5-5.1); SODIUM SERUM 138 mmol/L (136-145); UREA NITROGEN, BLOOD 58 mg/dL (7-18)
--- NOTE | 2017-03-31 07:25 | NUR ---
chef de partie initial notes Received patient in bed, awake, head of bed, elevated, no SOB or distress noted, on 02 @ 4lpm via NC and tolerated well. On tele monitor Afib heart rate of 60, no complaint of pain or discomfort at this time. On fall precaution, bed alarm on to alert staff when getting out of bed. IV intact and patent. Sitter at bedside for constant monitoring. Kept patient clean and comfortable in bed, call light with in patient reach, will continue to monitor accordingly.
[2017-03-31 07:46] LABS: BASOPHILS % (AUTO) 0.3 % (0.0-2.0); EOSINOPHILS # (AUTO) 0.3 /CMM (0.0-0.7); EOSINOPHILS % (AUTO) 3.3 % (0.0-6.0); HEMATOCRIT 32 % (39-51); HEMOGLOBIN 10.4 g/dL (13.5-17.5); LYMPHOCYTES # (AUTO) 1.3 /CMM (0.8-4.8); LYMPHOCYTES % (AUTO) 14.2 % (20.0-44.0); MEAN CORPUSCULAR HEMOGLOBIN 29 PG (26.0-33.0); MEAN CORPUSCULAR HGB CONC 32 g/dl (31.0-36.0); MEAN CORPUSCULAR VOLUME 88 fL (80-96); MONOCYTES # (AUTO) 0.9 /CMM (0.1-1.30); MONOCYTES % (AUTO) 9.3 % (2.0-12.0); NEUTROPHILS # (AUTO) 6.9 /CMM (1.8-8.9); NEUTROPHILS % (AUTO) 72.9 % (43.0-81.0); PLATELET COUNT (AUTO) 201 /CMM (150-450); RDW COEFFICIENT OF VARIATION 14.8 (11.5-15.0); RED BLOOD CELL COUNT(AUTO) 3.67 MIL/uL (4.5-6.0); WHITE BLOOD COUNT (AUTO) 9.4 K/uL (4.3-11.0)
[2017-03-31 08:00] VITALS: BP 101/45
[2017-03-31] MEDS: ATORVASTATIN 10 MG TABLET PO SCH (08:19)
[2017-03-31] MEDS: DILTIAZEM HCL CD 300 MG PO SCH (08:19)
[2017-03-31] MEDS: DOCUSATE SODIUM 100 MG CAPSULE PO SCH ×2 (08:20→16:09)
[2017-03-31] MEDS: ALLOPURINOL 100 MG TABLET PO SCH (08:20)
[2017-03-31] MEDS: CARVEDILOL 6.25 MG TABLET PO SCH ×2 (08:20→16:16)
[2017-03-31] MEDS: TAMSULOSIN 0.4 MG CAP.SR.24H PO SCH (08:20)
[2017-03-31] MEDS: ASPIRIN EC 81 MG TABLET.DR PO SCH (08:20)
[2017-03-31] MEDS: FUROSEMIDE 80 MG TABLET PO SCH (08:20)
[2017-03-31] MEDS: METOLAZONE 2.5 MG TABLET PO SCH (08:20)
[2017-03-31] MEDS: CLOTRIMAZOLE 1% 15 GM TUBE TP SCH ×2 (09:10→16:18)
[2017-03-31] MEDS: *INSULIN REGULAR(HUMULIN R)HUM 100 UNIT/ML VIAL SQ PRN ×2 (11:38→21:58)
[2017-03-31 12:00] VITALS: BP 118/78
[2017-03-31] MEDS: DIGOXIN 0.125 MG TABLET PO SCH (12:57)
--- NOTE | 2017-03-31 15:54 | NUR ---
hospital coordinator notes Spoke to Dr. vazquez regarding patient medication and ordered motrin 400 mg 1 tab PO Q6hrs PRN. All orders carried out and noted. Will continue to monitor accordingly.
--- NOTE | 2017-03-31 19:22 | NUR ---
ms rn closing notes All needs provided, attended, and anticipated. Kept patient clean and comfortable in bed, call light with in patient reach, endorsed to next shift RN to continue care.
--- NOTE | 2017-03-31 19:30 | NUR ---
RN INITIAL NOTE RECEIVED PT IN NO ACUTE DISTRESS IN BED. PT IS A/O X 4 AND ABLE TO MAKE NEEDS KNOWN. PT IS ON O2 VIA NC @ 4LPM AND TOLERATING WELL WITH O2 SAT @ 96%. PT DENIES ANY SOB, DIFFICULT BREATHING OR PAIN AT THIS TIME. PT HAS DORIS MIDLINE THAT IS CLEAN DRY INTACT AND PATENT. BED IN LOW LOCK POSITION WITH RIALS UP X 2. CALL LIGHT WITHIN REACH AND ALL SAFETY MEASURES ENSURED AND CARRIED OUT. WILL CONTINUE TO MONITOR FOR ANY CHANGES IN CONDITION.
[2017-03-31 20:00] VITALS: BP 97/52
[2017-03-31] MEDS: GABAPENTIN 100 MG CAPSULE PO SCH (21:53)
[2017-03-31] MEDS: ENOXAPARIN SODIUM 40 MG/0.4 ML DISP.SYRIN SQ SCH (21:54)
[2017-04-01 04:00] VITALS: BP 123/86
[2017-04-01] MEDS: BLOOD SUGAR DIAGNOSTIC 1 EACH STRIP VI SCH ×4 (06:36→21:28)
[2017-04-01] MEDS: LEVOTHYROXINE SODIUM 75 MCG TABLET PO SCH (06:36)
[2017-04-01] MEDS: PANTOPRAZOLE 40 MG TABLET.DR PO SCH (06:36)
[2017-04-01] MEDS: INSULIN REGULAR, HUMAN 100 UNIT/ML 3 ML VIAL SQ PRN ×2 (06:38→12:13)
--- NOTE | 2017-04-01 06:58 | NUR ---
RN CLOSING NOTE PT REMAINS IN NO ACUTE DISTRESS IN BED. PT DID NOT HAVE ANY SIGNIFICANT CHANGE IN CONDITION DURING SHIFT. ALL NEEDS MET ALL ORDERS CARRIED OUT. WILL ENDORSE TO AM RN FOR CONTINUITY OF CARE. PT REMAINS IN PAIN AND STILL REFUSES PAIN MEDICATION. EDUCATED PT ON PAIN MANAGEMENT, BUT PT STILL REFUSED.
[2017-04-01 07:39] LABS: CALCIUM, SERUM 9.2 mg/dL (8.5-10.1); CARBON DIOXIDE 31 mmol/L (21-32); CHLORIDE 101 mmol/L (98-107); CREATININE 1.8 mg/dL (0.6-1.3); GLUCOSE 169 mg/dL (74-106); MAGNESIUM 2.2 mg/dL (1.8-2.4); PHOSPHORUS 3.8 mg/dL (2.5-4.9); POTASSIUM 3.8 mmol/L (3.5-5.1); SODIUM SERUM 141 mmol/L (136-145); UREA NITROGEN, BLOOD 54 mg/dL (7-18)
[2017-04-01 08:00] VITALS: BP 123/91
[2017-04-01] MEDS: ATORVASTATIN 10 MG TABLET PO SCH (09:17)
[2017-04-01] MEDS: METOLAZONE 2.5 MG TABLET PO SCH (09:17)
[2017-04-01] MEDS: DILTIAZEM HCL CD 300 MG PO SCH (09:19)
[2017-04-01] MEDS: IBUPROFEN 400 MG TABLET PO PRN ×2 (09:20→16:13)
[2017-04-01] MEDS: DOCUSATE SODIUM 100 MG CAPSULE PO SCH ×2 (09:20→16:13)
[2017-04-01] MEDS: TAMSULOSIN 0.4 MG CAP.SR.24H PO SCH (09:20)
[2017-04-01] MEDS: ASPIRIN EC 81 MG TABLET.DR PO SCH (09:20)
[2017-04-01] MEDS: FUROSEMIDE 80 MG TABLET PO SCH (09:20)
[2017-04-01] MEDS: ALLOPURINOL 100 MG TABLET PO SCH (09:20)
[2017-04-01] MEDS: CARVEDILOL 6.25 MG TABLET PO SCH ×2 (09:20→16:14)
[2017-04-01] MEDS: CLOTRIMAZOLE 1% 15 GM TUBE TP SCH ×2 (09:21→16:13)
[2017-04-01] MEDS: ACETAMINOPHEN 325 MG TABLET PO PRN (12:13)
[2017-04-01] MEDS: DIGOXIN 0.125 MG TABLET PO SCH (12:14)
[2017-04-01 16:00] VITALS: BP 93/51
[2017-04-01] MEDS: GABAPENTIN 100 MG CAPSULE PO SCH (17:27)
[2017-04-01] MEDS: *INSULIN REGULAR(HUMULIN R)HUM 100 UNIT/ML VIAL SQ PRN ×2 (17:31→21:30)
[2017-04-01] MEDS: ALBUTEROL FS 2.5 MG/0.5 ML VIAL.NEB IH SCH ×2 (19:54→23:41)
[2017-04-01 20:00] VITALS: BP 102/68
[2017-04-01] MEDS: ENOXAPARIN SODIUM 40 MG/0.4 ML DISP.SYRIN SQ SCH (21:28)
[2017-04-02] MEDS: ALBUTEROL FS 2.5 MG/0.5 ML VIAL.NEB IH SCH ×6 (02:51→23:05)
[2017-04-02 04:00] VITALS: BP 98/52
[2017-04-02 07:07] LABS: BASOPHILS % (AUTO) 0.3 % (0.0-2.0); EOSINOPHILS # (AUTO) 0.1 /CMM (0.0-0.7); EOSINOPHILS % (AUTO) 1.1 % (0.0-6.0); HEMATOCRIT 32 % (39-51); HEMOGLOBIN 10.5 g/dL (13.5-17.5); LYMPHOCYTES # (AUTO) 0.9 /CMM (0.8-4.8); LYMPHOCYTES % (AUTO) 7.8 % (20.0-44.0); MEAN CORPUSCULAR HEMOGLOBIN 29 PG (26.0-33.0); MEAN CORPUSCULAR HGB CONC 33 g/dl (31.0-36.0); MEAN CORPUSCULAR VOLUME 87 fL (80-96); MONOCYTES % (AUTO) 8.4 % (2.0-12.0); NEUTROPHILS # (AUTO) 9.4 /CMM (1.8-8.9); NEUTROPHILS % (AUTO) 82.4 % (43.0-81.0); PLATELET COUNT (AUTO) 190 /CMM (150-450); RDW COEFFICIENT OF VARIATION 15.8 (11.5-15.0); RED BLOOD CELL COUNT(AUTO) 3.65 MIL/uL (4.5-6.0); WHITE BLOOD COUNT (AUTO) 11.4 K/uL (4.3-11.0)
[2017-04-02] MEDS: BLOOD SUGAR DIAGNOSTIC 1 EACH STRIP VI SCH ×4 (07:30→20:35)
--- NOTE | 2017-04-02 07:30 | NUR ---
RN INITIAL NOTE RECEIVED PT IN NO ACUTE DISTRESS IN BED. PT IS A/O X 4 AND ABLE TO MAKE NEEDS KNOWN. PT IS ON O2 VIA NC @ 4LPM AND TOLERATING WELL WITH O2 SAT @ 96%. PT DENIES ANY SOB, DIFFICULTY BREATHING OR PAIN AT THIS TIME. PT HAS DORIS MIDLINE THAT IS CLEAN DRY INTACT AND PATENT. BED IN LOW LOCK POSITION WITH RIALS UP X 2. CALL LIGHT WITHIN REACH AND ALL SAFETY MEASURES ENSURED AND CARRIED OUT. WILL CONTINUE TO MONITOR FOR ANY CHANGES IN CONDITION.
[2017-04-02 08:09] LABS: CALCIUM, SERUM 9.2 mg/dL (8.5-10.1); CARBON DIOXIDE 35 mmol/L (21-32); CHLORIDE 102 mmol/L (98-107); GLUCOSE 143 mg/dL (74-106); MAGNESIUM 2.3 mg/dL (1.8-2.4); PHOSPHORUS 4.2 mg/dL (2.5-4.9); POTASSIUM 3.9 mmol/L (3.5-5.1); SODIUM SERUM 142 mmol/L (136-145); UREA NITROGEN, BLOOD 65 mg/dL (7-18)
[2017-04-02] MEDS: ASPIRIN EC 81 MG TABLET.DR PO SCH (08:57)
[2017-04-02] MEDS: DOCUSATE SODIUM 100 MG CAPSULE PO SCH ×2 (08:57→16:02)
[2017-04-02] MEDS: ATORVASTATIN 10 MG TABLET PO SCH (08:57)
[2017-04-02] MEDS: FUROSEMIDE 80 MG TABLET PO SCH (08:57)
[2017-04-02] MEDS: CARVEDILOL 6.25 MG TABLET PO SCH ×2 (08:58→16:03)
[2017-04-02] MEDS: ALLOPURINOL 100 MG TABLET PO SCH (08:58)
[2017-04-02] MEDS: GABAPENTIN 100 MG CAPSULE PO SCH ×2 (08:58→16:03)
[2017-04-02] MEDS: METOLAZONE 2.5 MG TABLET PO SCH (08:59)
[2017-04-02] MEDS: DILTIAZEM HCL CD 300 MG PO SCH (08:59)
[2017-04-02] MEDS: CLOTRIMAZOLE 1% 15 GM TUBE TP SCH ×2 (09:00→16:05)
[2017-04-02] MEDS: TAMSULOSIN 0.4 MG CAP.SR.24H PO SCH (09:00)
[2017-04-02] MEDS: PANTOPRAZOLE 40 MG TABLET.DR PO SCH (09:00)
[2017-04-02] MEDS: LEVOTHYROXINE SODIUM 75 MCG TABLET PO SCH (09:00)
[2017-04-02 10:00] VITALS: BP 110/58
[2017-04-02] MEDS: ACETAMINOPHEN 325 MG TABLET PO PRN ×2 (11:22→20:34)
[2017-04-02 12:00] VITALS: BP 110/58
[2017-04-02] MEDS: DIGOXIN 0.125 MG TABLET PO SCH (14:03)
[2017-04-02 14:23] LABS: ABG BASE EXCESS 6.3 mmol/L; ABG OXYGEN SATURATION 88.8 % (92.0-98.5); ABG PCO2 53.6 mmHg (35.0-45.0); ABG PH 7.398 (7.350-7.450); ABG PO2 58.2 mmHg (75.0-100.0); AaDO2 165.4 mmHg; COHb 0.2 % (0.5-1.5); MetHb 1.2 % (0.0-1.5); O2Hb 87.6 % (94.0-97.0); SITE, ABG Left Brachial; VENT MODE, BG Nasal Cannula
[2017-04-02] MEDS: IPRATROPIUM NEB FS 0.5 MG/2.5 ML AMPUL.NEB NEB SCH ×3 (15:28→23:05)
[2017-04-02] MEDS: methylPREDNISolone SOD SUCC 125 MG/2ML VIAL IV SCH ×2 (16:02→20:33)
[2017-04-02] MEDS: INSULIN REGULAR, HUMAN 100 UNIT/ML 3 ML VIAL SQ PRN (16:45)
[2017-04-02 20:00] VITALS: BP 92/59
[2017-04-02 20:06] VITALS: BP 92/59
[2017-04-02] MEDS: ENOXAPARIN SODIUM 40 MG/0.4 ML DISP.SYRIN SQ SCH (20:34)
[2017-04-02] MEDS: *INSULIN REGULAR(HUMULIN R)HUM 100 UNIT/ML VIAL SQ PRN (20:35)
[2017-04-03] VITALS: BP 101/63
[2017-04-03] MEDS: IPRATROPIUM NEB FS 0.5 MG/2.5 ML AMPUL.NEB NEB SCH ×6 (02:52→23:52)
[2017-04-03] MEDS: ALBUTEROL FS 2.5 MG/0.5 ML VIAL.NEB IH SCH ×6 (02:52→23:52)
[2017-04-03 04:00] VITALS: BP 134/50
[2017-04-03] MEDS: methylPREDNISolone SOD SUCC 125 MG/2ML VIAL IV SCH ×3 (05:15→20:58)
[2017-04-03 06:44] LABS: HEMATOCRIT 34 % (39-51); HEMOGLOBIN 10.9 g/dL (13.5-17.5); LYMPHOCYTES # (AUTO) 0.3 /CMM (0.8-4.8); LYMPHOCYTES % (AUTO) 2.9 % (20.0-44.0); MEAN CORPUSCULAR HEMOGLOBIN 28 PG (26.0-33.0); MEAN CORPUSCULAR HGB CONC 33 g/dl (31.0-36.0); MEAN CORPUSCULAR VOLUME 87 fL (80-96); MONOCYTES # (AUTO) 0.2 /CMM (0.1-1.30); MONOCYTES % (AUTO) 1.7 % (2.0-12.0); NEUTROPHILS # (AUTO) 8.9 /CMM (1.8-8.9); NEUTROPHILS % (AUTO) 95.4 % (43.0-81.0); PLATELET COUNT (AUTO) 192 /CMM (150-450); RDW COEFFICIENT OF VARIATION 16.1 (11.5-15.0); RED BLOOD CELL COUNT(AUTO) 3.84 MIL/uL (4.5-6.0); WHITE BLOOD COUNT (AUTO) 9.3 K/uL (4.3-11.0)
[2017-04-03 07:09] LABS: ALANINE AMINOTRANSFERASE 17 U/L (12-78); ALBUMIN 2.7 g/dL (3.4-5.0); ALKALINE PHOSPHATASE 78 U/L (46-116); ASPARTATE AMINOTRANSFERASE 20 U/L (15-37); BILIRUBIN,TOTAL 0.4 mg/dL (0.2-1.0); CALCIUM, SERUM 8.9 mg/dL (8.5-10.1); CARBON DIOXIDE 32 mmol/L (21-32); CHLORIDE 100 mmol/L (98-107); CREATININE 2.2 mg/dL (0.6-1.3); GLUCOSE 301 mg/dL (74-106); MAGNESIUM 2.5 mg/dL (1.8-2.4); PHOSPHORUS 5.2 mg/dL (2.5-4.9); POTASSIUM 4.4 mmol/L (3.5-5.1); SODIUM SERUM 140 mmol/L (136-145); TOTAL PROTEIN, SERUM 7.2 g/dL (6.4-8.2)
[2017-04-03] MEDS: BLOOD SUGAR DIAGNOSTIC 1 EACH STRIP VI SCH ×2 (07:30→11:23)
[2017-04-03 07:49] LABS: UREA NITROGEN, BLOOD 80 mg/dL (7-18)
[2017-04-03 08:00] VITALS: BP 124/59
--- NOTE | 2017-04-03 08:00 | NUR ---
STATION WORKER RECEIVED PT IN BED AO X1, AFIB ON THE MONITOR SBP STABLE, PT IS ON 10L MASK SAT 92%, CRACKLES AND DIMINISHED BREATH SOUNDS, EDEMA PRESENT ALL EXTREMITIES, PT HAS LOWER EXTREMITY DECOLORIZATION AND SCABS, IV ACCCESS PATENT, OFF LOAD ALL EXTREMITES ON PILLOWS TURN AND REPOSITION IN BED FALL PRECAUTIONS TAKEN CALL LIGHT W/ IN REACH WILL CONTINUE TO MONITORE Addendum: 04/03/17 at 1019 by KENDRA DUNHAM RN ABOVE NOTE NOT PERTAINING TO THIS PATIENT. STATION WORKER RECEIVED PT IN BED AO X3, ON 4L NC SAT 92% NO DISTRESS NOTED DIMINISHED BREATH SOUNDS, AFIB ON TELE SBP STABLE, LOWER EXT. EDEMA PRESENT, PT CONSUMED 100% OF BREAKFAST, IV ACCESS PATENT 1:1 SITTER AT BEDSIDE, FALL PRECAUTIONS TAKEN CALL LIGHT W/ IN REACH WILL CONTINUE TO MONITOR.
[2017-04-03] MEDS: GABAPENTIN 100 MG CAPSULE PO SCH ×2 (08:05→16:58)
[2017-04-03] MEDS: DOCUSATE SODIUM 100 MG CAPSULE PO SCH ×2 (08:05→16:58)
[2017-04-03] MEDS: CARVEDILOL 6.25 MG TABLET PO SCH ×2 (08:06→16:58)
[2017-04-03] MEDS: LEVOTHYROXINE SODIUM 75 MCG TABLET PO SCH (08:06)
[2017-04-03] MEDS: ATORVASTATIN 10 MG TABLET PO SCH (08:06)
[2017-04-03] MEDS: TAMSULOSIN 0.4 MG CAP.SR.24H PO SCH (08:06)
[2017-04-03] MEDS: PANTOPRAZOLE 40 MG TABLET.DR PO SCH (08:06)
[2017-04-03] MEDS: METOLAZONE 2.5 MG TABLET PO SCH (08:06)
[2017-04-03] MEDS: DILTIAZEM HCL CD 300 MG PO SCH (08:06)
[2017-04-03] MEDS: ALLOPURINOL 100 MG TABLET PO SCH (08:06)
[2017-04-03] MEDS: ASPIRIN EC 81 MG TABLET.DR PO SCH (08:06)
[2017-04-03] MEDS: FUROSEMIDE 80 MG TABLET PO SCH (08:07)
[2017-04-03] MEDS: CLOTRIMAZOLE 1% 15 GM TUBE TP SCH ×2 (08:07→17:11)
--- NOTE | 2017-04-03 11:19 | NUR ---
BS 508 CALLED AYANA MERCER GIVE 15units of regular insulin and monitor.
[2017-04-03] MEDS: COLCHICINE 0.6 MG TABLET PO SCH (11:22)
[2017-04-03] MEDS: DIGOXIN 0.125 MG TABLET PO SCH (11:23)
[2017-04-03 12:00] VITALS: BP_SYST 11; BP_SYST 111; BP_DIAS 58
[2017-04-03] MEDS ORDERED: DEXTROSE 50%-WATER 50 ML DISP.SYRIN IV PRN (12:30)
[2017-04-03 16:00] VITALS: BP 119/56
[2017-04-03] MEDS: INSULIN REGULAR, HUMAN 100 UNIT/ML 3 ML VIAL SQ PRN ×2 (17:10→21:02)
[2017-04-03] MEDS ORDERED: BLOOD SUGAR DIAGNOSTIC 1 EACH STRIP IN SCH (17:30)
[2017-04-03 17:43] LABS: CARBON DIOXIDE 33 mmol/L (21-32); CHLORIDE 98 mmol/L (98-107); CREATININE 2.2 mg/dL (0.6-1.3); POTASSIUM 4.2 mmol/L (3.5-5.1); SODIUM SERUM 137 mmol/L (136-145)
[2017-04-03 17:59] LABS: GLUCOSE 583 mg/dL (74-106); UREA NITROGEN, BLOOD 83 mg/dL (7-18)
[2017-04-03] MEDS ORDERED: INSULIN REGULAR, HUMAN 100 UNIT/ML 3 ML VIAL IV ONE ×2 (18:30→19:00)
--- NOTE | 2017-04-03 19:03 | NUR ---
PRIMER AND POWDER CANNING LEADER PT BLOOD SUGAR UNSTABLE HIGH, AWARE CHERASHA ORDERS FOLLOWED REPORT GIVEN TO PM NURSE 10UNITS IV INSULINE GIVEN ORDERED RN WILL CHECK BS IN 1HR PT IS SATING 87% CALLED RT TO GIVE PT BREATHING TREATMENT.
--- NOTE | 2017-04-03 19:36 | NUR ---
RN NOTE. INITIAL ASSESSMENT. RECEIVED THE PT REST ON THE BED. PT IS TAMAZIGHT SPEAKING. SITTER AT BED SIDE. OXYGEN 4L VIA NASAL CANNULA. SAT 98%. NO ACUTE DISTRESS NOTED. WOOD TYPE FINISHER SHOWING AFIB WITH PVCS. IV RT UPPER ARM MID LINE SALINE LOCK. HOB ELEVATED. TURN AND REPOSITION Q2H. WILL CONTINUE TO MONITOR VITALS.
[2017-04-03 20:00] VITALS: BP 114/65
--- NOTE | 2017-04-03 20:00 | NUR ---
CHANGE OF ASSIGNMENT NOTE; PT ON THE BED RESTING WITHOUT ANY DISTRESS , WITH SOB ON EXERTION. TELE MONITOR SHOWING A FIB CONTROLLED . DENIED ANY PAIN AT THIS TIME . BLOOD SUGAR TO MONITOR Q2H WITH AGGRESSIVE SLIDING SCALE. WILL CONTINUE TO MONITOR .
[2017-04-03] MEDS: MAGNESIUM HYDROXIDE 30 ML UDC PO PRN (20:56)
[2017-04-03] MEDS: *INSULIN REGULAR(HUMULIN R)HUM 100 UNIT/ML VIAL SQ PRN ×2 (21:03→23:14)
[2017-04-03] MEDS: BLOOD SUGAR DIAGNOSTIC 1 EACH STRIP IN SCH ×2 (21:03→23:14)
[2017-04-03] MEDS: ENOXAPARIN SODIUM 40 MG/0.4 ML DISP.SYRIN SQ SCH (21:06)
[2017-04-04] VITALS: BP 108/61
[2017-04-04] MEDS: *INSULIN REGULAR(HUMULIN R)HUM 100 UNIT/ML VIAL SQ PRN ×3 (01:26→21:01)
[2017-04-04] MEDS: BLOOD SUGAR DIAGNOSTIC 1 EACH STRIP IN SCH ×9 (01:26→20:59)
[2017-04-04] MEDS: ALBUTEROL FS 2.5 MG/0.5 ML VIAL.NEB IH SCH ×6 (03:48→23:43)
[2017-04-04] MEDS: IPRATROPIUM NEB FS 0.5 MG/2.5 ML AMPUL.NEB NEB SCH ×6 (03:48→23:43)
[2017-04-04 04:00] VITALS: BP 119/61
[2017-04-04] MEDS: methylPREDNISolone SOD SUCC 125 MG/2ML VIAL IV SCH ×3 (06:08→20:52)
[2017-04-04] MEDS: INSULIN REGULAR, HUMAN 100 UNIT/ML 3 ML VIAL SQ PRN ×4 (06:14→17:38)
--- NOTE | 2017-04-04 07:07 | NUR ---
RN EOS NOTE; PT REMAINED ON BED WITHOUT ANY DISTRESS . ON VENTURI MASK @ 12 LPM . SOB WITH EXERTION PRESENT. TOTAL CARE RENDERED. WITH 1;1 SITTER . TURNED AND REPOSITIONED Q2H. BLOOD SUGAR CHECKED AND AGGRESSIVE SLIDING SCALE CONTINUE . ENDORSED TO NEXT SHIFT RN FOR CONTINUITY OF CARE.
--- NOTE | 2017-04-04 07:15 | NUR ---
RN NOTES RECEIVED PATIENT AOX2 WITH EPISODES OF CONFUSION , NOT IN ACUTE DISTRESS , RESPIRATIONS ARE DEEP BUT UNLABORED WITH ONGOING BREATHING TX , ATRIAL FIBRILLATION 73 ON TELE MONITOR , WITH 1;1 SITTER AT BEDSIDE , IV OF DORIS MIDLINE HL , ALL NEEDS ATTENDED , BED ON LOW AND LOCKED POSITION , SIDE RAIL X2 ,CALL LIGHT WITHIN REACH , HON @ 45 , CALL LIGHT WITHIN REACH ,WILL CONTINUE TO MONITOR .
--- NOTE | 2017-04-04 07:45 | NUR ---
RN NOTES GAMA ALCARAZ AT BEDSIDE , O2 CHANGED TO 6LPM NC , TO KEEP SPO2 ABOVE 90% , WILL CONTINUE TO MONITOR
[2017-04-04 08:00] VITALS: BP 126/67
[2017-04-04 08:11] LABS: HEMATOCRIT 33 % (39-51); HEMOGLOBIN 10.6 g/dL (13.5-17.5); LYMPHOCYTES # (AUTO) 0.3 /CMM (0.8-4.8); LYMPHOCYTES % (AUTO) 3.5 % (20.0-44.0); MEAN CORPUSCULAR HEMOGLOBIN 28 PG (26.0-33.0); MEAN CORPUSCULAR HGB CONC 32 g/dl (31.0-36.0); MEAN CORPUSCULAR VOLUME 87 fL (80-96); MONOCYTES # (AUTO) 0.2 /CMM (0.1-1.30); MONOCYTES % (AUTO) 1.9 % (2.0-12.0); NEUTROPHILS # (AUTO) 9.1 /CMM (1.8-8.9); NEUTROPHILS % (AUTO) 94.6 % (43.0-81.0); PLATELET COUNT (AUTO) 224 /CMM (150-450); RED BLOOD CELL COUNT(AUTO) 3.77 MIL/uL (4.5-6.0); WHITE BLOOD COUNT (AUTO) 9.6 K/uL (4.3-11.0)
[2017-04-04] MEDS: COLCHICINE 0.6 MG TABLET PO SCH (08:18)
[2017-04-04] MEDS: PANTOPRAZOLE 40 MG TABLET.DR PO SCH (08:18)
[2017-04-04] MEDS: DOCUSATE SODIUM 100 MG CAPSULE PO SCH ×2 (08:18→17:31)
[2017-04-04] MEDS: TAMSULOSIN 0.4 MG CAP.SR.24H PO SCH (08:18)
[2017-04-04] MEDS: GABAPENTIN 100 MG CAPSULE PO SCH ×2 (08:18→17:31)
[2017-04-04] MEDS: ATORVASTATIN 10 MG TABLET PO SCH (08:19)
[2017-04-04] MEDS: CARVEDILOL 6.25 MG TABLET PO SCH ×2 (08:19→17:31)
[2017-04-04] MEDS: DILTIAZEM HCL CD 300 MG PO SCH (08:19)
[2017-04-04] MEDS: ASPIRIN EC 81 MG TABLET.DR PO SCH (08:19)
[2017-04-04] MEDS: ALLOPURINOL 100 MG TABLET PO SCH (08:19)
[2017-04-04] MEDS: LEVOTHYROXINE SODIUM 75 MCG TABLET PO SCH (08:19)
[2017-04-04] MEDS: CLOTRIMAZOLE 1% 15 GM TUBE TP SCH ×2 (08:20→17:32)
[2017-04-04 08:28] LABS: CALCIUM, SERUM 9.1 mg/dL (8.5-10.1); CARBON DIOXIDE 34 mmol/L (21-32); CHLORIDE 100 mmol/L (98-107); CREATININE 1.8 mg/dL (0.6-1.3); GLUCOSE 214 mg/dL (74-106); POTASSIUM 4.2 mmol/L (3.5-5.1); SODIUM SERUM 142 mmol/L (136-145)
[2017-04-04 08:29] LABS: UREA NITROGEN, BLOOD 87 mg/dL (7-18)
--- NOTE | 2017-04-04 09:00 | NUR ---
RN NOTES PT REFUSES BLOOD SUGAR CHECK , EXPLAINED THE BENEFITS OF IT , PT VERBALIZED UNDERSTANDING STILL REFUSES HE VERBALIZED THAT THEY JUST CHECK HIS BLOOD SUGAR @ 0700 AM .
--- NOTE | 2017-04-04 10:11 | NUR ---
RN NOTES DR BURGESS AT BEDSIDE , DISCUSSED LABS , PT ON 6LPM NC SPO2 OF 90% WITH EPISODES OF DESATURATION AT 87% , NO DISTRESS NOTED , PER MD ORDER CHEST XRAY AND ABG , CALL FOR ABG RESULT
--- NOTE | 2017-04-04 10:15 | NUR ---
RN NOTES PT UNABLE TO DO PT PT O2 OF 6LPM WITH EPISODES OF DESATURATIONS ,
[2017-04-04 10:48] LABS: ABG BASE EXCESS 7.1 mmol/L; ABG OXYGEN SATURATION 89.3 % (92.0-98.5); ABG PCO2 63.2 mmHg (35.0-45.0); ABG PH 7.353 (7.350-7.450); ABG PO2 60.6 mmHg (75.0-100.0); AaDO2 195.7 mmHg; O2Hb 87.5 % (94.0-97.0); VENT MODE, BG Nasal Cannula
[2017-04-04 10:49] LABS: SITE, ABG Right Radial
--- NOTE | 2017-04-04 10:52 | NUR ---
RT NOTE: PLEASE NOTE ABG DRAWN FROM RIGHT RADIAL SITE NOT RIGHT FEMORAL.
[2017-04-04 12:00] VITALS: BP_SYST 126; BP_SYST 199; BP_DIAS 67; BP_DIAS 80
[2017-04-04] MEDS: DIGOXIN 0.125 MG TABLET PO SCH (13:49)
[2017-04-04] MEDS ORDERED: *INSULIN REGULAR(HUMULIN R)HUM 100 UNIT/ML VIAL SQ PRN (14:00)
[2017-04-04] MEDS ORDERED: DEXTROSE 50%-WATER 50 ML DISP.SYRIN IV PRN ×2 (14:00→14:30)
[2017-04-04] MEDS ORDERED: INSULIN REGULAR, HUMAN 100 UNIT/ML 3 ML VIAL SQ PRN (14:00)
--- NOTE | 2017-04-04 14:05 | NUR ---
RN NOTES NICKO MERCER AT BEDSIDE , SEEN AND EVALUATED THE PT , DISCUSSED LABS , ABG , CHEST XRAY RESULT , BS OF 305 @ 1330 , ON AGGRESSIVE SLIDING SCALE ACHS , AFEBRILE , V/S STABLE , O2 OF 6LPM NC WITH SPO2 OF 89-90%
--- NOTE | 2017-04-04 14:50 | NUR ---
RN NOTES RELEAYED ABG RESULT VIA 6LPM NC TO DR BURGESS , PT NOT ON DISTRESS , SPO2 OF 90% , PER MD CONTINUE O2 OF 6LPM NC AND FOLLOW UP ABG IN AM
[2017-04-04 16:00] VITALS: BP 110/65
[2017-04-04] MEDS ORDERED: BLOOD SUGAR DIAGNOSTIC 1 EACH STRIP IN SCH (17:30)
[2017-04-04 20:00] VITALS: BP 129/63
--- NOTE | 2017-04-04 20:08 | NUR ---
received pt from day shift, alert, follows commands, Afib controlled, on 6L 02, sat well, tolerates diet, diaper on, BLLE pitting edema, v/s stable, no pain, pt turned and repositioned.
[2017-04-04] MEDS: ENOXAPARIN SODIUM 40 MG/0.4 ML DISP.SYRIN SQ SCH (20:51)
[2017-04-04] MEDS: MAGNESIUM HYDROXIDE 30 ML UDC PO PRN (22:07)
[2017-04-05] VITALS: BP 140/88
[2017-04-05 04:00] VITALS: BP 134/71
[2017-04-05] MEDS: ALBUTEROL FS 2.5 MG/0.5 ML VIAL.NEB IH SCH ×6 (04:06→23:07)
[2017-04-05] MEDS: IPRATROPIUM NEB FS 0.5 MG/2.5 ML AMPUL.NEB NEB SCH ×6 (04:06→23:07)
--- NOTE | 2017-04-05 04:18 | NUR ---
pt is resting in the bed, no acute distress overnight, Afib controlled, on Venturi mask, sat 88%, v/s stable, no pain, pt cleaned, changed and repositioned q2hrs.
[2017-04-05] MEDS: methylPREDNISolone SOD SUCC 125 MG/2ML VIAL IV SCH ×3 (04:32→21:00)
[2017-04-05 07:39] LABS: BASOPHILS % (AUTO) 0.2 % (0.0-2.0); HEMATOCRIT 34 % (39-51); HEMOGLOBIN 11.1 g/dL (13.5-17.5); LYMPHOCYTES # (AUTO) 0.3 /CMM (0.8-4.8); LYMPHOCYTES % (AUTO) 2.9 % (20.0-44.0); MEAN CORPUSCULAR HEMOGLOBIN 28 PG (26.0-33.0); MEAN CORPUSCULAR HGB CONC 32 g/dl (31.0-36.0); MEAN CORPUSCULAR VOLUME 88 fL (80-96); MONOCYTES # (AUTO) 0.3 /CMM (0.1-1.30); MONOCYTES % (AUTO) 3.2 % (2.0-12.0); NEUTROPHILS # (AUTO) 8.5 /CMM (1.8-8.9); NEUTROPHILS % (AUTO) 93.7 % (43.0-81.0); PLATELET COUNT (AUTO) 267 /CMM (150-450); RDW COEFFICIENT OF VARIATION 15.5 (11.5-15.0); RED BLOOD CELL COUNT(AUTO) 3.91 MIL/uL (4.5-6.0); WHITE BLOOD COUNT (AUTO) 9.1 K/uL (4.3-11.0)
[2017-04-05] MEDS: PANTOPRAZOLE 40 MG TABLET.DR PO SCH (07:53)
[2017-04-05] MEDS: LEVOTHYROXINE SODIUM 75 MCG TABLET PO SCH (07:53)
[2017-04-05] MEDS: BLOOD SUGAR DIAGNOSTIC 1 EACH STRIP IN SCH ×4 (07:53→21:02)
[2017-04-05] MEDS: INSULIN REGULAR, HUMAN 100 UNIT/ML 3 ML VIAL SQ PRN ×3 (07:55→17:24)
[2017-04-05 07:57] LABS: CALCIUM, SERUM 9.4 mg/dL (8.5-10.1); CARBON DIOXIDE 38 mmol/L (21-32); CHLORIDE 104 mmol/L (98-107); CREATININE 1.5 mg/dL (0.6-1.3); GLUCOSE 284 mg/dL (74-106); MAGNESIUM 3.2 mg/dL (1.8-2.4); PHOSPHORUS 3.7 mg/dL (2.5-4.9); POTASSIUM 4.2 mmol/L (3.5-5.1); SODIUM SERUM 145 mmol/L (136-145)
[2017-04-05 07:58] LABS: UREA NITROGEN, BLOOD 88 mg/dL (7-18)
[2017-04-05 08:00] VITALS: BP 103/69
[2017-04-05] MEDS: CLOTRIMAZOLE 1% 15 GM TUBE TP SCH ×2 (08:38→17:23)
[2017-04-05] MEDS: ATORVASTATIN 10 MG TABLET PO SCH (08:39)
[2017-04-05] MEDS: GABAPENTIN 100 MG CAPSULE PO SCH ×2 (08:39→17:22)
[2017-04-05] MEDS: TAMSULOSIN 0.4 MG CAP.SR.24H PO SCH (08:39)
[2017-04-05] MEDS: CARVEDILOL 6.25 MG TABLET PO SCH ×2 (08:39→17:23)
[2017-04-05] MEDS: ALLOPURINOL 100 MG TABLET PO SCH (08:39)
[2017-04-05] MEDS: COLCHICINE 0.6 MG TABLET PO SCH (08:39)
[2017-04-05] MEDS: ASPIRIN EC 81 MG TABLET.DR PO SCH (08:39)
[2017-04-05] MEDS: DOCUSATE SODIUM 100 MG CAPSULE PO SCH ×2 (08:39→17:22)
[2017-04-05] MEDS: DILTIAZEM HCL CD 300 MG PO SCH (08:40)
--- NOTE | 2017-04-05 08:45 | NUR ---
TAMIA RN Patient switched to 6L of nasal cannula from venturi mask. Tolerated, no shortness of breath. Saturation >88%. ABG this AM.
[2017-04-05 09:19] LABS: ABG BASE EXCESS 13.2 mmol/L; ABG OXYGEN SATURATION 88.6 % (92.0-98.5); ABG PCO2 71.7 mmHg (35.0-45.0); ABG PH 7.377 (7.350-7.450); ABG PO2 59.5 mmHg (75.0-100.0); AaDO2 172.5 mmHg; MetHb 0.7 % (0.0-1.5); O2Hb 87.1 % (94.0-97.0); SITE, ABG Right Radial
[2017-04-05 12:00] VITALS: BP 123/79
[2017-04-05] MEDS: DIGOXIN 0.125 MG TABLET PO SCH (12:04)
[2017-04-05] MEDS: FUROSEMIDE 20 MG/2 ML VIAL IV SCH ×2 (14:21→17:22)
[2017-04-05 16:00] VITALS: BP 138/78
[2017-04-05 20:00] VITALS: BP 138/78
[2017-04-05] MEDS: *INSULIN REGULAR(HUMULIN R)HUM 100 UNIT/ML VIAL SQ PRN (21:01)
[2017-04-05] MEDS: ENOXAPARIN SODIUM 40 MG/0.4 ML DISP.SYRIN SQ SCH (21:02)
[2017-04-06] VITALS: BP 96/32
[2017-04-06] MEDS: ACETAMINOPHEN 325 MG TABLET PO PRN (02:31)
[2017-04-06] MEDS: ALBUTEROL FS 2.5 MG/0.5 ML VIAL.NEB IH SCH ×6 (03:08→23:30)
[2017-04-06] MEDS: IPRATROPIUM NEB FS 0.5 MG/2.5 ML AMPUL.NEB NEB SCH ×6 (03:08→23:30)
[2017-04-06 04:00] VITALS: BP 147/77
[2017-04-06] MEDS: methylPREDNISolone SOD SUCC 125 MG/2ML VIAL IV SCH ×3 (05:11→21:47)
--- NOTE | 2017-04-06 06:44 | NUR ---
RN CLOSING NOTES PATIENT IN BED, SLEEPING AND OBSERVED TO BE TALKING AND YELLING AND SWINGING LEGS AND ARMS WHILE SLEEPING. 1:1 SITTER AT BEDSIDE AT ALL TIMES. PATIENT'S SAFETY AND COMFORT ENSURED AT ALL TIMES. PATIENT IS OBSERVED TO BE AGITATED AND RESTLESS OVERNIGHT, CONSTANT REORIENTATION AND REDIRECTION PROVIDED WITH MINIMAL HELP TO CONTROL PATIENT'S BEHAVIOR. DORIS MIDLINE INTACT AND PATENT, ON SL. REMAINS CONTROLLED AFIB WITH OCCASIONAL PVC ON TELE, HR OF 87. NEEDS ANTICIPATED AND MET. SAFETY AND COMFORT ENSURED. BED IN LOW AND LOCKED POSITION. ALL DUE MEDS GIVEN ORDERED. AM LABS DRAWN. WILL ENDORSE ACCORDINGLY FOR CONTINUITY OF CARE.
[2017-04-06 07:08] LABS: BASOPHILS % (AUTO) 0.3 % (0.0-2.0); EOSINOPHILS % (AUTO) 0.1 % (0.0-6.0); HEMATOCRIT 33 % (39-51); HEMOGLOBIN 10.8 g/dL (13.5-17.5); LYMPHOCYTES # (AUTO) 0.3 /CMM (0.8-4.8); LYMPHOCYTES % (AUTO) 4.6 % (20.0-44.0); MEAN CORPUSCULAR HEMOGLOBIN 28 PG (26.0-33.0); MEAN CORPUSCULAR HGB CONC 33 g/dl (31.0-36.0); MEAN CORPUSCULAR VOLUME 87 fL (80-96); MONOCYTES # (AUTO) 0.1 /CMM (0.1-1.30); MONOCYTES % (AUTO) 2.1 % (2.0-12.0); NEUTROPHILS # (AUTO) 5.9 /CMM (1.8-8.9); NEUTROPHILS % (AUTO) 92.9 % (43.0-81.0); PLATELET COUNT (AUTO) 242 /CMM (150-450); RDW COEFFICIENT OF VARIATION 15.4 (11.5-15.0); RED BLOOD CELL COUNT(AUTO) 3.82 MIL/uL (4.5-6.0); WHITE BLOOD COUNT (AUTO) 6.4 K/uL (4.3-11.0)
[2017-04-06] MEDS: BLOOD SUGAR DIAGNOSTIC 1 EACH STRIP IN SCH ×4 (07:27→21:47)
[2017-04-06 07:28] LABS: ALANINE AMINOTRANSFERASE 20 U/L (12-78); ALBUMIN 2.6 g/dL (3.4-5.0); ALKALINE PHOSPHATASE 68 U/L (46-116); ASPARTATE AMINOTRANSFERASE 17 U/L (15-37); BILIRUBIN,TOTAL 0.5 mg/dL (0.2-1.0); CALCIUM, SERUM 9.3 mg/dL (8.5-10.1); CHLORIDE 101 mmol/L (98-107); CREATININE 1.4 mg/dL (0.6-1.3); GLUCOSE 232 mg/dL (74-106); MAGNESIUM 2.7 mg/dL (1.8-2.4); PHOSPHORUS 3.7 mg/dL (2.5-4.9); POTASSIUM 3.7 mmol/L (3.5-5.1); SODIUM SERUM 146 mmol/L (136-145); TOTAL PROTEIN, SERUM 6.8 g/dL (6.4-8.2)
[2017-04-06 07:38] LABS: CARBON DIOXIDE 43 mmol/L (21-32); UREA NITROGEN, BLOOD 86 mg/dL (7-18)
[2017-04-06 08:00] VITALS: BP 158/88
--- NOTE | 2017-04-06 08:00 | NUR ---
curriculum and assessment coordinator pt in bed very lethargic wakes up to name, ao x1, dr. Issa at bedside abg ordered will continue to monitor, vs stable o2 sat 88%, pt deneis of pain, turn and reposition in bed fall precautions taken call light w/ in reach 1:1 sitter at bedside,
[2017-04-06] MEDS: COLCHICINE 0.6 MG TABLET PO SCH (08:27)
[2017-04-06] MEDS: ALLOPURINOL 100 MG TABLET PO SCH (08:27)
[2017-04-06] MEDS: TAMSULOSIN 0.4 MG CAP.SR.24H PO SCH (08:27)
[2017-04-06] MEDS: PANTOPRAZOLE 40 MG TABLET.DR PO SCH (08:27)
[2017-04-06] MEDS: LEVOTHYROXINE SODIUM 75 MCG TABLET PO SCH (08:27)
[2017-04-06] MEDS: ASPIRIN EC 81 MG TABLET.DR PO SCH (08:27)
[2017-04-06] MEDS: DOCUSATE SODIUM 100 MG CAPSULE PO SCH ×2 (08:27→16:47)
[2017-04-06] MEDS: GABAPENTIN 100 MG CAPSULE PO SCH ×2 (08:28→16:47)
[2017-04-06] MEDS: ATORVASTATIN 10 MG TABLET PO SCH (08:28)
[2017-04-06] MEDS: FUROSEMIDE 20 MG/2 ML VIAL IV SCH ×2 (08:28→08:33)
[2017-04-06] MEDS: DILTIAZEM HCL CD 300 MG PO SCH (08:29)
[2017-04-06] MEDS: CARVEDILOL 6.25 MG TABLET PO SCH ×2 (08:29→16:48)
[2017-04-06] MEDS: CLOTRIMAZOLE 1% 15 GM TUBE TP SCH ×2 (08:29→16:48)
[2017-04-06 08:57] LABS: ABG BASE EXCESS 15.5 mmol/L; ABG OXYGEN SATURATION 92.5 % (92.0-98.5); ABG PCO2 61.3 mmHg (35.0-45.0); ABG PH 7.455 (7.350-7.450); AaDO2 63.3 mmHg; MetHb 0.4 % (0.0-1.5); O2Hb 90.3 % (94.0-97.0); SITE, ABG Right Radial; VENT MODE, BG NASAL CANNULA
[2017-04-06] MEDS ORDERED: acetaZOLAMIDE SODIUM 500 MG/VIAL VIAL IV ONE (09:00)
--- NOTE | 2017-04-06 12:00 | NUR ---
horticultural services supervisor called dr. Mason to assess pt, Md at bedside reviewed chest xray and labs ordered new labs will continue to monitor.
[2017-04-06 12:15] VITALS: BP 142/79
[2017-04-06 12:49] LABS: INR 1.09 (0.87-1.13); PROTHROMBIN TIME 11.7 SECS (9.5-12.7)
[2017-04-06] MEDS: DIGOXIN 0.125 MG TABLET PO SCH (13:21)
[2017-04-06] MEDS: INSULIN REGULAR, HUMAN 100 UNIT/ML 3 ML VIAL SQ PRN ×2 (13:22→16:52)
[2017-04-06 16:00] VITALS: BP 122/66
--- NOTE | 2017-04-06 19:15 | NUR ---
RN INITIAL NOTES RECEIVED PATIENT IN BED, OBSERVED TO BE LETHARGIC, PATIENT SATURATING AT 84% ON 2LPM OF O2 VIA NC. PATIENT IS AROUSABLE WITH VERBAL AND TACTILE STIMULI. NO DISTRESS. 1:1 SITTER AT BEDSIDE. DORIS MIDLINE PATENT AND INTACT, SL. CONTROLLED AFIB ON TELE WITH OCCASIONAL PVCs, 78. NEEDS ANTICIPATED AND MET. SAFETY AND COMFORT ENSURED. BED IN LOW AND LOCKED POSITION. CALL LIGHT IN REACH. WILL MONITOR CLOSELY.
[2017-04-06 20:00] VITALS: BP 142/67
[2017-04-06] MEDS: ENOXAPARIN SODIUM 40 MG/0.4 ML DISP.SYRIN SQ SCH (21:49)
[2017-04-06] MEDS: *INSULIN REGULAR(HUMULIN R)HUM 100 UNIT/ML VIAL SQ PRN (21:50)
--- NOTE | 2017-04-06 22:00 | NUR ---
RN NOTES PATIENT ON CLOSE MONITORING. O2 SATURATION KEPT AT 88-91% AT 2LPM OF O2 VIA NC, PATIENT IS OBSERVED TO BE LETHARGIC, EASILY AROUSABLE WITH VERBAL AND TACTILE STIMULI. PATIENT'S SATURATION OCCASIONALLY OBSERVED TO GO DOWN TO 80-84% WHILE SLEEPING, AWOKEN PATIENT AND REMINDED TO BREATHE, SATURATIONS GOES UP TO 88-89%. ON CLOSE MONITORING. Addendum: 04/07/17 at 0525 by HAYLEY TAYLOR RN PATIENT WAS REMINDED TO BREATH THROUGH NASAL AIRWAY PER O2 DELIVERY, PATIENT TENDS TO BE A MOUTH BREATHER WITH SLEEP, WITH HELP.
--- NOTE | 2017-04-06 23:30 | NUR ---
RN NOTES PATIENT IS AWAKE, OBSERVED TO BE ALERT AND ORIENTED. PATIENT OBSERVED TO BE AGITATED AND ASKING FOR FOOD. PROVIDED PATIENT WITH FOOD PROVIDED BY PATIENT'S FAMILY, PATIENT ABLE TO CONSUME SNACK WITH NO ASPIRATION NOTED, ASPIRATION PRECAUTION OBSERVED AT ALL TIMES. PATIENT OBSERVED TO BE SATURATING WELL DURING WAKEFUL HOURS WITH O2 NOTED TO BE 94-96% AT 2LPM OF O2 VIA NC. 1:1 SITTER AT BEDSIDE AT ALL TIMES.
[2017-04-07] VITALS (20 sets, daily range): BP systolic 108–145; BP diastolic 50–88
--- NOTE | 2017-04-07 01:15 | NUR ---
RN NOTES 0100 UPHOLSTERY DEPARTMENT SUPERVISOR INFORMED RN OF THE PATIENT'S EPISODE OF BRADYCARDIA WITH LOWEST AT 36, A RESULT OF MULTIPLE, OCCASIONAL PAUSES NOTED WITH LONGEST OF 2-3 SECONDS FOR THE PAST 30 MINUTES. PATIENT ALSO NOTED WITH FREQUENT PVCs AND COUPLETS. NONSUSTAINING BRADYCARDIA WITH HR JUMPING UP TO 70s INSTANTLY. ASSESSED PATIENT, PATIENT IS SLEEPING COMFORTABLY, EASILY AROUSABLE WITH VERBAL AND TACTILE STIMULI. VS: 110/65, 71, 92% ON 2LPM OF O2 VIA NC. [address] GIBBS AND INFORMED OF THE PATIENT'S CARDIAC RHYTHM AND REVIEWED MEDS WITH MD. DR. GIBBS TO ASSESS THE PATIENT IN AM. NNO GIVEN AT THIS TIME. WILL CONTINUE TO MONITOR. CN AWARE.
[2017-04-07 02:43] LABS: BASOPHILS % (AUTO) 0.1 % (0.0-2.0); HEMATOCRIT 37 % (39-51); HEMOGLOBIN 11.8 g/dL (13.5-17.5); LYMPHOCYTES # (AUTO) 0.4 /CMM (0.8-4.8); LYMPHOCYTES % (AUTO) 4.5 % (20.0-44.0); MEAN CORPUSCULAR HEMOGLOBIN 28 PG (26.0-33.0); MEAN CORPUSCULAR HGB CONC 32 g/dl (31.0-36.0); MEAN CORPUSCULAR VOLUME 88 fL (80-96); MONOCYTES # (AUTO) 0.3 /CMM (0.1-1.30); MONOCYTES % (AUTO) 3.8 % (2.0-12.0); NEUTROPHILS # (AUTO) 7.6 /CMM (1.8-8.9); NEUTROPHILS % (AUTO) 91.6 % (43.0-81.0); PLATELET COUNT (AUTO) 282 /CMM (150-450); RDW COEFFICIENT OF VARIATION 15.5 (11.5-15.0); RED BLOOD CELL COUNT(AUTO) 4.25 MIL/uL (4.5-6.0); WHITE BLOOD COUNT (AUTO) 8.3 K/uL (4.3-11.0)
[2017-04-07 03:01] LABS: ALANINE AMINOTRANSFERASE 21 U/L (12-78); ALBUMIN 2.7 g/dL (3.4-5.0); ALKALINE PHOSPHATASE 75 U/L (46-116); ASPARTATE AMINOTRANSFERASE 14 U/L (15-37); BILIRUBIN,TOTAL 0.6 mg/dL (0.2-1.0); CALCIUM, SERUM 9.5 mg/dL (8.5-10.1); CHLORIDE 104 mmol/L (98-107); CREATININE 1.4 mg/dL (0.6-1.3); GLUCOSE 250 mg/dL (74-106); MAGNESIUM 2.5 mg/dL (1.8-2.4); PHOSPHORUS 3.1 mg/dL (2.5-4.9); POTASSIUM 3.6 mmol/L (3.5-5.1); SODIUM SERUM 147 mmol/L (136-145); TOTAL PROTEIN, SERUM 7.2 g/dL (6.4-8.2); UREA NITROGEN, BLOOD 77 mg/dL (7-18)
--- NOTE | 2017-04-07 03:20 | NUR ---
RN NOTES CRITICAL LAB VALUE OF CO2= 47, MG=2.5. PATIENT ON 2LPM OF O2 VIA NC, SATURATION KEPT AT 88-92%. PATIENT STILL NOTED WITH OCCASIONAL PAUSES, HEART RATE GOES DOWN TO 47bpm, JUMPS BACK UP TO 60s, EASILY AROUSABLE. FREQUENT PVCs. CALLED [facility], SPOKE WITH DR. MALLOY. UPDATED MD OF THE PATIENT'S CURRENT CONDITION AND LAB VALUES. CONTINUOUS MONITORING AT THIS TIME, NNO.
[2017-04-07 03:22] LABS: CARBON DIOXIDE 47 mmol/L (21-32)
[2017-04-07] MEDS: ALBUTEROL FS 2.5 MG/0.5 ML VIAL.NEB IH SCH ×6 (03:30→23:35)
[2017-04-07] MEDS: IPRATROPIUM NEB FS 0.5 MG/2.5 ML AMPUL.NEB NEB SCH ×6 (03:30→23:35)
--- NOTE | 2017-04-07 05:25 | NUR ---
RN NOTES PATIENT PROVIDED WITH AM CARE. PATIENT KEPT CLEAN AND DRY. PATIENT OBSERVED TO HAVE AN O2 SATURATION OF 97% WITH O2 VIA NC AT 2LPM AND PATIENT LAYING ON HIS L LATERAL SIDE. PATIENT REMAINS AFIB, CONTROLLED WITH OCCASIONAL PVCs, HR 65. ON CLOSE MONITORING.
[2017-04-07] MEDS: methylPREDNISolone SOD SUCC 125 MG/2ML VIAL IV SCH ×3 (05:34→20:49)
--- NOTE | 2017-04-07 06:29 | NUR ---
RN NOTES PATIENT SLEEPING, EASILY AROUSABLE WITH VERBAL AND TACTILE STIMULI. CONTROLLED AFIB WITH OCCASIONAL PVCs, HR OF 76-88. ON 2LPM OF O2 VIA NC, SATURATION AT 92%. 1:1 SITTER AT BEDSIDE. ON CLOSE MONITORING. WILL ENDORSE ACCORDINGLY FOR CONTINUITY OF CARE.
[2017-04-07] MEDS: BLOOD SUGAR DIAGNOSTIC 1 EACH STRIP IN SCH ×4 (06:49→21:53)
[2017-04-07] MEDS: INSULIN REGULAR, HUMAN 100 UNIT/ML 3 ML VIAL SQ PRN (06:52)
--- NOTE | 2017-04-07 08:00 | NUR ---
RISK OFFICER: pt.is awake, but confused occas., dementia by report, Ox2, speak Estonian/Luxembourger, weak, no c/o now, no pain, oriented for place, time, POC, HR 58-64 over night, SBP up to 140, O2 n/c down from 6L to 2L by night nurse report, O2 sat. 91-93% now, no SOB, no labored, Oseas,RT is aware re 04/06/17 ABG, said compensated, spoke with , pt had rudi episodes/multiple ectopies over night, was notified, updated with VS, see new morning orders (incl.Diamox), PT eval.order is active, sitter is in room
[2017-04-07] MEDS: PANTOPRAZOLE 40 MG TABLET.DR PO SCH (08:03)
[2017-04-07] MEDS: LEVOTHYROXINE SODIUM 75 MCG TABLET PO SCH (08:03)
[2017-04-07] MEDS ORDERED: acetaZOLAMIDE SODIUM 500 MG/VIAL VIAL IV ONE (08:30)
--- NOTE | 2017-04-07 08:30 | NUR ---
RN TAMIA: Oseas RT is aware re ABG order
[2017-04-07] MEDS: DOCUSATE SODIUM 100 MG CAPSULE PO SCH ×4 (09:00→17:26)
[2017-04-07] MEDS: DILTIAZEM HCL CD 300 MG PO SCH ×2 (09:20→10:20)
[2017-04-07] MEDS: GABAPENTIN 100 MG CAPSULE PO SCH ×3 (09:20→17:30)
[2017-04-07] MEDS: ATORVASTATIN 10 MG TABLET PO SCH ×2 (09:20→10:20)
[2017-04-07] MEDS: ALLOPURINOL 100 MG TABLET PO SCH ×2 (09:21→10:20)
[2017-04-07] MEDS: COLCHICINE 0.6 MG TABLET PO SCH ×2 (09:21→10:20)
[2017-04-07] MEDS: ASPIRIN EC 81 MG TABLET.DR PO SCH ×2 (09:21→10:20)
[2017-04-07] MEDS: CLOTRIMAZOLE 1% 15 GM TUBE TP SCH ×2 (09:21→17:30)
[2017-04-07] MEDS: TAMSULOSIN 0.4 MG CAP.SR.24H PO SCH ×2 (09:21→10:20)
--- NOTE | 2017-04-07 10:05 | NUR ---
RN TAMIA: pt.is confused/uncooperative, dropped all meds on floor, was reoriented for POC, needs AIRLINE MANAGERIAL SUPERVISOR/sitter help
--- NOTE | 2017-04-07 11:00 | NUR ---
FRUIT PRESS OPERATOR: pt.was reoriented for POC, meds, is cooperative now, A/Ox2, no c/o any pain, O2 sat. 92-93% on 2L O2 n/c, HR 60-70, sitter is at BS
[2017-04-07] MEDS: *INSULIN REGULAR(HUMULIN R)HUM 100 UNIT/ML VIAL SQ PRN ×3 (12:09→21:52)
[2017-04-07] MEDS: DIGOXIN 0.125 MG TABLET PO SCH (12:10)
--- NOTE | 2017-04-07 12:15 | NUR ---
TABLE FILLER: pt.is A/Ox2, can follow commands well now, but still weak, can swallow well, HR 70-85, SBP over 100, O2 sat. 91-95%, no SOB, pt.daughter is in room, updated with pt.current condition, VS, POC, orders, labs
--- NOTE | 2017-04-07 14:00 | NUR ---
RN TAMIA: notified RT/ABG done
[2017-04-07 14:09] LABS: ABG BASE EXCESS 14.2 mmol/L; ABG PCO2 73.3 mmHg (35.0-45.0); ABG PH 7.381 (7.350-7.450); ABG PO2 55.7 mmHg (75.0-100.0); AaDO2 57.4 mmHg; MetHb 0.9 % (0.0-1.5); O2Hb 84.5 % (94.0-97.0); SITE, ABG Left Radial; VENT MODE, BG N/C
--- NOTE | 2017-04-07 14:30 | NUR ---
ENROLLMENT ADVISOR: pH 7.38, pCO2 73, pO2 55, bicarb 42, is updated/ordered Bipap 14/03 R14, charge nurse notified, changed pt. for ICU status, pt.is transferred to 106 room with room continue VS monitoring, repeat ABG at 17.00
[2017-04-07 17:11] LABS: ABG OXYGEN SATURATION 92.1 % (92.0-98.5); ABG PCO2 88.3 mmHg (35.0-45.0); ABG PH 7.333 (7.350-7.450); ABG PO2 72.2 mmHg (75.0-100.0); AaDO2 74.7 mmHg; COHb 1.4 % (0.5-1.5); MetHb 0.8 % (0.0-1.5); O2Hb 90.1 % (94.0-97.0); SITE, ABG Left Radial; VENT MODE, BG BIPAP 18/5 PS13
--- NOTE | 2017-04-07 17:31 | NUR ---
SUPPLY CHAIN SPECIALIST: ABG repeated: pH 7.33, pCO2 88, pO2 72, bicarb 45, Oseas,RT updated , new Bipap setting order: I/E 20/, rate 18
--- NOTE | 2017-04-07 17:38 | NUR ---
[employer]HW[address] POLICE OFFICER: unable to removed Bipap mask now for PO meds/pt.is confused occas., pt.tried to remove mask, sitter is at BS
--- NOTE | 2017-04-07 18:30 | NUR ---
DEMO SPECIALIST: pt.was transferred to ICU with report, 17.00 PO meds are given
--- NOTE | 2017-04-07 18:30 | NUR ---
TRANSFER EXPORT CLERK NOTE RCVD PT AWAKE AND ALERT TO SELF, VENEZUELAN/POLISH SPEAKING PER REPORT. SHOWING NO S/O DISTRESS. VITAL SIGNS STABLE. CONTROLLED AFIB ON TELE. ON BIPAP TOLERATING WELL. BED IN LOW AND LOCKED POSITION. BED ALARM ON. PT'S CARE WILL BE ENDORSED TO HISTOLOGY ASSISTANT RN FOR CONTINUITY OF CARE.
--- NOTE | 2017-04-07 18:32 | NUR ---
RT END OF THE SHIFT REPORT: PT. 82 Y OLD MALE PLACED ON BIPAP POST ABG PER DR. MILLER, ORDER AND TRANSFERRED TO 106. ILNA WELL POST ABG DONE AT [address] MILLER ORDER, TRANSFERRED TO ICU AND CONTINUE FOR MONITOR. BIPAP REMAIN ON AND AMBU BAG AT THE BEDSIDE, REPORT WILL PASS TO PM SHIFT. Addendum: 04/07/17 at 1834 by HERNAN JUAREZ RT Amended: Links added.
--- NOTE | 2017-04-07 20:30 | NUR ---
received pt from day shift, alert, follows commands, A fib controlled, on bipap, sat well, tolerates diet, diaper on, v/s stable, no pain, pt turned and repositioned.
[2017-04-07] MEDS: ENOXAPARIN SODIUM 40 MG/0.4 ML DISP.SYRIN SQ SCH (20:54)
[2017-04-08] VITALS (30 sets, daily range): BP systolic 74–129; BP diastolic 31–84
--- NOTE | 2017-04-08 01:03 | NUR ---
pt is resting in the bed, on bipap, v/s stable, no pain, pt turned and repositioned q2hrs.
--- NOTE | 2017-04-08 04:06 | NUR ---
pt is resting in the bed, on and off of bipap, v/s stable, no pain, pt cleaned, changed and repositioned q2hrs.
[2017-04-08] MEDS: IPRATROPIUM NEB FS 0.5 MG/2.5 ML AMPUL.NEB NEB SCH ×6 (04:11→23:06)
[2017-04-08] MEDS: ALBUTEROL FS 2.5 MG/0.5 ML VIAL.NEB IH SCH ×6 (04:11→23:06)
[2017-04-08] MEDS: methylPREDNISolone SOD SUCC 125 MG/2ML VIAL IV SCH ×3 (04:21→21:02)
[2017-04-08 04:40] LABS: HEMATOCRIT 37 % (39-51); HEMOGLOBIN 11.8 g/dL (13.5-17.5); LYMPHOCYTES # (AUTO) 0.2 /CMM (0.8-4.8); LYMPHOCYTES % (AUTO) 2.6 % (20.0-44.0); MEAN CORPUSCULAR HEMOGLOBIN 28 PG (26.0-33.0); MEAN CORPUSCULAR HGB CONC 32 g/dl (31.0-36.0); MEAN CORPUSCULAR VOLUME 87 fL (80-96); MONOCYTES # (AUTO) 0.3 /CMM (0.1-1.30); NEUTROPHILS # (AUTO) 8.2 /CMM (1.8-8.9); NEUTROPHILS % (AUTO) 94.4 % (43.0-81.0); PLATELET COUNT (AUTO) 283 /CMM (150-450); RDW COEFFICIENT OF VARIATION 15.4 (11.5-15.0); RED BLOOD CELL COUNT(AUTO) 4.19 MIL/uL (4.5-6.0); WHITE BLOOD COUNT (AUTO) 8.7 K/uL (4.3-11.0)
[2017-04-08 05:23] LABS: CALCIUM, SERUM 9.1 mg/dL (8.5-10.1); CHLORIDE 103 mmol/L (98-107); CREATININE 1.2 mg/dL (0.6-1.3); GLUCOSE 322 mg/dL (74-106); MAGNESIUM 2.5 mg/dL (1.8-2.4); PHOSPHORUS 3.6 mg/dL (2.5-4.9); POTASSIUM 3.6 mmol/L (3.5-5.1); SODIUM SERUM 145 mmol/L (136-145); UREA NITROGEN, BLOOD 65 mg/dL (7-18)
[2017-04-08 05:26] LABS: CARBON DIOXIDE 40 mmol/L (21-32)
--- NOTE | 2017-04-08 07:09 | NUR ---
COLLEGE RECRUITER NOTES RECEIVED PATIENT AOX2-3 PERSIAN SPEAKING , NOT IN ACUTE DISTRESS , DENIES SOB AND DISCOMFORT AT THIS TIME , ON 2LPM NC SPO2 OF 93% , AFIB 75 ON BEDSIDE MONITOR , DORIS MIDLINE PATENT AND INTACT , ALL NEEDS ATTENDED , BED ON LOW AND LOCKED POSITION , SIDE RAILS X2 ,CALL LIGHT WITHIN REACH , HOB @ 45 , WILL CONTINUE TO MONITOR
[2017-04-08] MEDS: BLOOD SUGAR DIAGNOSTIC 1 EACH STRIP IN SCH ×4 (07:41→21:06)
[2017-04-08] MEDS: PANTOPRAZOLE 40 MG TABLET.DR PO SCH (07:41)
[2017-04-08] MEDS: LEVOTHYROXINE SODIUM 75 MCG TABLET PO SCH (07:41)
[2017-04-08] MEDS: INSULIN REGULAR, HUMAN 100 UNIT/ML 3 ML VIAL SQ PRN ×3 (07:46→17:28)
[2017-04-08] MEDS: COLCHICINE 0.6 MG TABLET PO SCH (08:00)
[2017-04-08] MEDS: TAMSULOSIN 0.4 MG CAP.SR.24H PO SCH (08:00)
[2017-04-08] MEDS: DOCUSATE SODIUM 100 MG CAPSULE PO SCH ×2 (08:00→17:23)
[2017-04-08] MEDS: ALLOPURINOL 100 MG TABLET PO SCH (08:00)
[2017-04-08] MEDS: ASPIRIN EC 81 MG TABLET.DR PO SCH (08:00)
[2017-04-08] MEDS: GABAPENTIN 100 MG CAPSULE PO SCH ×2 (08:00→17:23)
[2017-04-08] MEDS: ATORVASTATIN 10 MG TABLET PO SCH (08:00)
[2017-04-08] MEDS: DILTIAZEM HCL CD 300 MG PO SCH (08:00)
[2017-04-08] MEDS: CLOTRIMAZOLE 1% 15 GM TUBE TP SCH ×2 (08:01→17:24)
--- NOTE | 2017-04-08 08:30 | NUR ---
DIRECTOR WRITING NOTES RT AT BEDSIDE INSTRUCTING PATIENT HOW TO USE INCENTIVE SPIROMETRY , PATIENT TOLERATING WELL ,WILL CONTINUE TO MONITOR
[2017-04-08] MEDS: POTASSIUM CHLORIDE 20 MEQ TAB.PRT.SR PO SCH (08:37)
[2017-04-08 08:54] LABS: ABG BASE EXCESS 12.8 mmol/L; ABG OXYGEN SATURATION 89.5 % (92.0-98.5); ABG PCO2 71.2 mmHg (35.0-45.0); ABG PH 7.378 (7.350-7.450); ABG PO2 60.8 mmHg (75.0-100.0); AaDO2 142.5 mmHg; COHb 1.3 % (0.5-1.5); MetHb 0.7 % (0.0-1.5); O2Hb 87.7 % (94.0-97.0); SITE, ABG Right Radial; VENT MODE, BG 5L N/C
[2017-04-08] MEDS ORDERED: acetaZOLAMIDE SODIUM 500 MG/VIAL VIAL IV ONE (09:00)
--- NOTE | 2017-04-08 09:22 | NUR ---
GLUE JOINTER FEEDER NOTES DR LAMAR AT BEDSIDE , DISCUSSED LABS , DIAMOX 500MG IV X1 TODAY , MORE AWAKE , TRANSFERRED TO ICU DUE TO ABNORMAL ABG AND BIPAP MD AWARE
--- NOTE | 2017-04-08 11:55 | NUR ---
SALESPERSON TOY TRAINS AND ACCESSORIES NOTES NICKO MERCER EPIDEMIOLOGY INVESTIGATOR AT BEDSIDE , DISUSSED LABS , CHEST XRAY AND ANG RESULT , ON 2LPM NC SPO2 OF 91% WITH NO APPARENT DISTRESS , MORE AWAKE AND ALERT X3 , S/P DIAMOX 500MG , PT AFIB ON LOW 55 - 80BMP , BS OF 281 @ 1200 12 UNITS GIVEN , EPIDEMIOLOGY INVESTIGATOR AWARE .
--- NOTE | 2017-04-08 14:37 | NUR ---
TRANSFER CAR OPERATOR DRIER NOTES NOTIFIED DR GIBBS REGARDING BIGEMINY 2-3 WITH 11-12 PVC'S IN A MINUTE , AFIB ON LOW 45 , STABLE AT THIS TIME , NO DISCOMFORT , MD AWARE , NO NEW ORDERS RECEIVED .
--- NOTE | 2017-04-08 20:00 | NUR ---
FLATBED DRIVER NOTES RECEIVED PT IN BED, AWAKE. A/O X3. NO S/S OF RESPIRATORY DISTRESS. ON NC AT 6 LPM, LNIA WELL. TELE READS AFIB IN THE 70s. SBP >90. ON CARDIAC DIET, CURRENTLY EAT SNACKS. DORIS MIDLINE, SALINE LOCKED. CALL LIGHT WITH REACH, HOB ELEVATED, SIDE RAILS X3. PT DENIES PAIN AT THIS TIME.
[2017-04-08] MEDS: ENOXAPARIN SODIUM 40 MG/0.4 ML DISP.SYRIN SQ SCH (21:05)
[2017-04-08] MEDS: *INSULIN REGULAR(HUMULIN R)HUM 100 UNIT/ML VIAL SQ PRN (21:11)
[2017-04-09] VITALS (25 sets, daily range): BP systolic 106–136; BP diastolic 23–76
[2017-04-09] MEDS: IPRATROPIUM NEB FS 0.5 MG/2.5 ML AMPUL.NEB NEB SCH ×6 (03:25→23:46)
[2017-04-09] MEDS: ALBUTEROL FS 2.5 MG/0.5 ML VIAL.NEB IH SCH ×6 (03:25→23:46)
[2017-04-09 05:04] LABS: BASOPHILS % (AUTO) 0.1 % (0.0-2.0); HEMATOCRIT 35 % (39-51); HEMOGLOBIN 11.3 g/dL (13.5-17.5); LYMPHOCYTES # (AUTO) 0.2 /CMM (0.8-4.8); LYMPHOCYTES % (AUTO) 1.5 % (20.0-44.0); MEAN CORPUSCULAR HEMOGLOBIN 28 PG (26.0-33.0); MEAN CORPUSCULAR HGB CONC 32 g/dl (31.0-36.0); MEAN CORPUSCULAR VOLUME 87 fL (80-96); MONOCYTES # (AUTO) 0.4 /CMM (0.1-1.30); MONOCYTES % (AUTO) 2.6 % (2.0-12.0); NEUTROPHILS # (AUTO) 12.8 /CMM (1.8-8.9); NEUTROPHILS % (AUTO) 95.8 % (43.0-81.0); PLATELET COUNT (AUTO) 281 /CMM (150-450); RDW COEFFICIENT OF VARIATION 15.2 (11.5-15.0); RED BLOOD CELL COUNT(AUTO) 4.03 MIL/uL (4.5-6.0); WHITE BLOOD COUNT (AUTO) 13.4 K/uL (4.3-11.0)
[2017-04-09] MEDS: methylPREDNISolone SOD SUCC 125 MG/2ML VIAL IV SCH ×3 (05:09→21:26)
[2017-04-09 05:40] LABS: CALCIUM, SERUM 8.6 mg/dL (8.5-10.1); CHLORIDE 103 mmol/L (98-107); CREATININE 1.3 mg/dL (0.6-1.3); MAGNESIUM 2.5 mg/dL (1.8-2.4); PHOSPHORUS 3.7 mg/dL (2.5-4.9); POTASSIUM 3.4 mmol/L (3.5-5.1); SODIUM SERUM 143 mmol/L (136-145); UREA NITROGEN, BLOOD 65 mg/dL (7-18)
[2017-04-09 05:44] LABS: CARBON DIOXIDE 40 mmol/L (21-32); GLUCOSE 354 mg/dL (74-106)
[2017-04-09] MEDS: BLOOD SUGAR DIAGNOSTIC 1 EACH STRIP IN SCH ×4 (06:31→21:20)
[2017-04-09] MEDS: INSULIN REGULAR, HUMAN 100 UNIT/ML 3 ML VIAL SQ PRN ×4 (06:34→21:22)
--- NOTE | 2017-04-09 07:45 | NUR ---
RN INITIAL NOTES PT IN BED, A/O X3, IRISH SPEAKING, ON SIMPLE MASK 6L, TOLERATING WELL, NO SOB, NO DISTRESS, ON MONITOR WITH AFIB 70-80'S. PT HAS DIAPER. IV ON DORIS MIDLINE SL, SALINE FLUSHED, CDI, NO SIGNS OF INFECTION/INFILTRATION. REFER TO PTS CHART REGARDING SKIN, ALL WOUND ORDERS CARRIED OUT. CALL LIGHT WITHIN EASY REACH, SAFETY MEASURES MAINTAINED, WILL CONTINUE TO MONITOR AND FOLLOW MD ORDERS. PT IN STABLE CONDITION.
[2017-04-09] MEDS: DOCUSATE SODIUM 100 MG CAPSULE PO SCH ×2 (08:43→16:48)
[2017-04-09] MEDS: PANTOPRAZOLE 40 MG TABLET.DR PO SCH (08:43)
[2017-04-09] MEDS: LEVOTHYROXINE SODIUM 75 MCG TABLET PO SCH (08:43)
[2017-04-09] MEDS: POTASSIUM CHLORIDE 20 MEQ TAB.PRT.SR PO SCH ×3 (08:43→11:00)
[2017-04-09] MEDS: ATORVASTATIN 10 MG TABLET PO SCH (08:43)
[2017-04-09] MEDS: TAMSULOSIN 0.4 MG CAP.SR.24H PO SCH (08:43)
[2017-04-09] MEDS: COLCHICINE 0.6 MG TABLET PO SCH (08:43)
[2017-04-09] MEDS: ALLOPURINOL 100 MG TABLET PO SCH (08:43)
[2017-04-09] MEDS: ASPIRIN EC 81 MG TABLET.DR PO SCH (08:43)
[2017-04-09] MEDS: CLOTRIMAZOLE 1% 15 GM TUBE TP SCH ×2 (08:44→16:52)
[2017-04-09] MEDS: GABAPENTIN 100 MG CAPSULE PO SCH ×2 (08:44→16:48)
[2017-04-09] MEDS ORDERED: acetaZOLAMIDE SODIUM 500 MG/VIAL VIAL IV ONE (09:00)
[2017-04-09] MEDS ORDERED: POTASSIUM CHLORIDE 20 MEQ TAB.PRT.SR PO SCH (09:00)
[2017-04-09] MEDS: acetaZOLAMIDE SODIUM 500 MG/VIAL VIAL IV SCH ×2 (09:00→17:18)
--- NOTE | 2017-04-09 09:30 | NUR ---
RN NOTES OXYGEN DROPPED DOWN TO 1-[address] GIBBS.
--- NOTE | 2017-04-09 11:15 | NUR ---
RN NOTES PER DR. GIBBS HE WANTED TO GIVE A TOTAL OF 3 TABLETS OF KDUR; FIRST 20 MEQ WAS GIVEN BY THE SCHEDULED 0900 KDUR, THEN THE OTHER TWO (TOTAL OF 40 MEQ) WAS GIVEN A PART 1 OF 2 (WHICH WOULD HAVE BEEN 80 MEQ; OVERALL TOTAL OF 5 TABLETS). THEREFORE I DID NOT GIVE THE PART 2 OF 2 KDUR.
[2017-04-09] MEDS: DIGOXIN 0.125 MG TABLET PO SCH (12:10)
[2017-04-09 15:27] LABS: ABG BASE EXCESS 12.9 mmol/L; ABG PCO2 82.2 mmHg (35.0-45.0); ABG PH 7.327 (7.350-7.450); ABG PO2 69.8 mmHg (75.0-100.0); AaDO2 32.8 mmHg; COHb 1.1 % (0.5-1.5); O2Hb 90.1 % (94.0-97.0); SITE, ABG Right Radial; VENT MODE, BG N/C
--- NOTE | 2017-04-09 15:52 | NUR ---
RN NOTES GAVE REPORT TO GAMA VANCE BECAUSE GAMA RUIZ WAS BUSY; PT TRANSFERRED UP TO 3 [place] ROOM 315-2 IN STABLE CONDITION, ALL MD ORDERS CARRIED OUT, NO SUDDEN CHANGES DURING MY SHIFT, DORIS MIDLINE CDI, SALINE FLUSHED, NO SIGNS OF INFECTION/INFILTRATION.
--- NOTE | 2017-04-09 15:56 | NUR ---
RN NOTES RECEIVED PT FROM ICU TRANSFER VIA BED, ON O2@1LPM VIA NC, VS CHECKED AND RECORDED. SATING 92% AT THIS TIME. PT IS AWAKE ALERT ORIENTED, SPEECH UNCLEAR. APPEARS RESTLESS. REALITY ORIENTATION PROVIDED. KEPT PT COMFORTABLE. SAFETY MAINTAINED, FREQUENT VISUAL CHECKS MADE, CALL LIGHT WITHIN REACH, WILL CONTINUE TO MONITOR
--- NOTE | 2017-04-09 19:25 | NUR ---
RN OPEN NOTES RECEIVED PATIENT RESTING IN BED. EASILY AROUSABLE TO NAME. ALERT AND ORIENTED. NO SIGNS OF DISTRESS OR DISCOMFORT. BREATHING EVEN AND UNLABORED. HAS DORIS MIDLINE, PATENT ANT INTACT, NO SIGNS OF REDNESS OR INFILTRATION. BED IN LOW LOCKED POSITION WITH SIDE RAILS X3. CALL LIGHT WITHIN REACH. WILL CONTINUE TO MONITOR. Addendum: 04/09/17 at 2014 by DESTINEY THRASHER RN RECEIVED PATIENT ON 2LPM O2 VIA NC.
--- NOTE | 2017-04-09 20:40 | NUR ---
RN NOTES ATTACHED PATIENT TO TELE MONITOR WITH AFIB 80'S NOTED.
[2017-04-09] MEDS: ENOXAPARIN SODIUM 40 MG/0.4 ML DISP.SYRIN SQ SCH (21:26)
[2017-04-10] VITALS (7 sets, daily range): BP systolic 112–145; BP diastolic 63–84
[2017-04-10] MEDS: IPRATROPIUM NEB FS 0.5 MG/2.5 ML AMPUL.NEB NEB SCH ×5 (03:46→19:58)
[2017-04-10] MEDS: ALBUTEROL FS 2.5 MG/0.5 ML VIAL.NEB IH SCH ×5 (03:46→19:58)
[2017-04-10] MEDS: methylPREDNISolone SOD SUCC 125 MG/2ML VIAL IV SCH ×3 (05:37→21:12)
[2017-04-10] MEDS: BLOOD SUGAR DIAGNOSTIC 1 EACH STRIP IN SCH ×4 (06:39→21:23)
--- NOTE | 2017-04-10 07:30 | NUR ---
TELE/RN OPENING NOTE PT. IS AWAKE IN BED A&OX3. PT. IS PRYDEINIG, AND GUINEAN SPEAKING. NO S/S OF SOB, AND PT. DENIES SOB. PT. IS BREATHING ON OXYGEN AT 2 L/MIN. PT. ON TELE MONITOR, HEART RHYTHM READING, ATRIAL FIBRILLATION AT 91 BPM. PT. C/O WEAKNESS. BED IS IN LOW POSITION, PT. IS ON AIR MATTRESS, 2 SIDE RAILS UP, AND INSTRUCTED PT. TO USE CALL LIGHT FOR ASSISTANCE, AND ALL NEEDS MET. WILL CONTINUE TO ASSESS AND MONITOR PT.
--- NOTE | 2017-04-10 07:37 | NUR ---
RN CLOSING NOTES PATIENT AWAKE IN BED. ALERT AND ORIENTED. NO SIGNS OF DISTRESS OR DISCOMFORT. BREATHING EVEN AND UNLABORED. ON 2LPM O2 VIA NC. HAS DORIS MIDLINE, PATENT ANT INTACT, NO SIGNS OF REDNESS OR INFILTRATION. NO SIGNIFICANT CHANGES THROUGH THE NIGHT. PATIENT KEPT CLEAN DRY AND COMFORTABLE. REPOSITIONED Q2H. ALL NEEDS MET. BED IN LOW LOCKED POSITION WITH SIDE RAILS X3. CALL LIGHT WITHIN REACH. WILL ENDORSE TO AM SHIFT FOR CAROLYN.
--- NOTE | 2017-04-10 08:00 | NUR ---
MS/RN NOTES PT. WAS SEEN AND EXAMINED BY DR. GIBBS, AND NO NEW ORDERS GIVEN AT THIS TIME.
--- NOTE | 2017-04-10 08:30 | NUR ---
TELE/RN NOTES PT. IS HAVING LABS DRAWN THIS MORNING.
[2017-04-10 08:54] LABS: BASOPHILS % (AUTO) 0.1 % (0.0-2.0); HEMATOCRIT 41 % (39-51); HEMOGLOBIN 13.2 g/dL (13.5-17.5); LYMPHOCYTES # (AUTO) 0.5 /CMM (0.8-4.8); LYMPHOCYTES % (AUTO) 2.4 % (20.0-44.0); MEAN CORPUSCULAR HEMOGLOBIN 28 PG (26.0-33.0); MEAN CORPUSCULAR HGB CONC 32 g/dl (31.0-36.0); MEAN CORPUSCULAR VOLUME 88 fL (80-96); MONOCYTES # (AUTO) 0.7 /CMM (0.1-1.30); MONOCYTES % (AUTO) 3.4 % (2.0-12.0); NEUTROPHILS # (AUTO) 18.2 /CMM (1.8-8.9); NEUTROPHILS % (AUTO) 94.1 % (43.0-81.0); PLATELET COUNT (AUTO) 161 /CMM (150-450); RDW COEFFICIENT OF VARIATION 15.4 (11.5-15.0); RED BLOOD CELL COUNT(AUTO) 4.66 MIL/uL (4.5-6.0); WHITE BLOOD COUNT (AUTO) 19.4 K/uL (4.3-11.0)
[2017-04-10 09:24] LABS: CALCIUM, SERUM 9.1 mg/dL (8.5-10.1); CARBON DIOXIDE 37 mmol/L (21-32); CHLORIDE 106 mmol/L (98-107); CREATININE 1.1 mg/dL (0.6-1.3); GLUCOSE 182 mg/dL (74-106); MAGNESIUM 2.5 mg/dL (1.8-2.4); PHOSPHORUS 3.3 mg/dL (2.5-4.9); POTASSIUM 4.2 mmol/L (3.5-5.1); SODIUM SERUM 145 mmol/L (136-145); UREA NITROGEN, BLOOD 55 mg/dL (7-18)
[2017-04-10] MEDS: CLOTRIMAZOLE 1% 15 GM TUBE TP SCH ×2 (09:59→17:25)
[2017-04-10] MEDS: GABAPENTIN 100 MG CAPSULE PO SCH ×2 (10:00→17:19)
[2017-04-10] MEDS: DOCUSATE SODIUM 100 MG CAPSULE PO SCH ×2 (10:00→17:19)
[2017-04-10] MEDS: POTASSIUM CHLORIDE 20 MEQ TAB.PRT.SR PO SCH (10:00)
[2017-04-10] MEDS: ATORVASTATIN 10 MG TABLET PO SCH (10:00)
[2017-04-10] MEDS: ALLOPURINOL 100 MG TABLET PO SCH (10:00)
[2017-04-10] MEDS: ASPIRIN EC 81 MG TABLET.DR PO SCH (10:00)
[2017-04-10] MEDS: PANTOPRAZOLE 40 MG TABLET.DR PO SCH (10:01)
[2017-04-10] MEDS: LEVOTHYROXINE SODIUM 75 MCG TABLET PO SCH (10:01)
[2017-04-10] MEDS: COLCHICINE 0.6 MG TABLET PO SCH (10:01)
[2017-04-10] MEDS: TAMSULOSIN 0.4 MG CAP.SR.24H PO SCH (10:08)
[2017-04-10] MEDS ORDERED: BUMETANIDE INJ 4 MG in IV D5W 24 ML IV ONE (10:30)
[2017-04-10] MEDS ORDERED: IV SET PRIMARY PUMP SET 1 EA INFUS.SET MC ONE (11:58)
[2017-04-10] MEDS: INSULIN REGULAR, HUMAN 100 UNIT/ML 3 ML VIAL SQ PRN ×2 (12:30→17:18)
[2017-04-10] MEDS: DIGOXIN 0.125 MG TABLET PO SCH (12:45)
[2017-04-10 13:44] LABS: ABG PCO2 63.3 mmHg (35.0-45.0); ABG PH 7.332 (7.350-7.450); ABG PO2 55.3 mmHg (75.0-100.0); AaDO2 69.6 mmHg; COHb 1.2 % (0.5-1.5); MetHb 0.5 % (0.0-1.5); O2Hb 86.5 % (94.0-97.0); SITE, ABG Right Radial; VENT MODE, BG NASAL CANNULA
--- NOTE | 2017-04-10 19:30 | NUR ---
RN NOTES RECEIVED PT ASLEEP, HOB ELEVATED, NO SOB, NOT IN DISTRESS, ON O2 INHALATION AT 2LPM VIA NC AND TOLERATED WELL. PT ALERT AND ORIENTED X3, PALAUAN SPEAKING. VITAL SIGNS STABLE,DENIES ANY PAIN AND DISCOMFORT AT THIS TIME. TELEMONITOR READS A FIB WITH PVC'S HEART RATE 85.RIGHT UPPER MIDLINE PATENT AND INTACT.WIH OVERHEAD TRAPEZE FOR REPOSITIONING. KEPT PT DRY AND CLEAN. KEPT BED IN THE LOWEST POSITION, LOCKED, SIDE RAILS X3 UP,WITH CALL LIGHT WITHIN EASY REACH. WILL CONTINUE TO MONITOR PT.
--- NOTE | 2017-04-10 19:30 | NUR ---
TELE/RN CLOSING NOTES PT. IS IN BED A&OX3. PT. IS SAO TOMEAN AND SENEGALESE SPEAKING. NO SOB, BREATHING ON OXYGEN AT 2L/MIN, UNLABORED AND EVENLY. NO S/S OF ACUTE DISTRESS. PT. HAS A TRAPEZE OVER HEAD AFTER PHYSICAL THERAPY EVALUATION. A WALKER IS NEAR HIS BEDSIDE. IV ACCESS IS PATENT AND INTACT ON RIGHT UPPER ARM MIDLINE SALINE LOCK. BED IS IN LOW POSITION, 2 SIDE RAILS UP, INSTRUCTED PT. TO USE CALL LIGHT FOR ASSISTANCE, AND ALL NEEDS MET. WILL ENDORSE REPORT TO HEADWAITRESS NURSE.
[2017-04-10] MEDS: ENOXAPARIN SODIUM 40 MG/0.4 ML DISP.SYRIN SQ SCH (21:13)
[2017-04-10] MEDS: *INSULIN REGULAR(HUMULIN R)HUM 100 UNIT/ML VIAL SQ PRN (21:25)
--- NOTE | 2017-04-10 21:25 | NUR ---
RN NOTES BLOOD SUGAR CHECKED 346 MG/DL, 8 UNITS INSULIN GIVEN SUBCU PER SLIDING SCALE. WILL CONTINUE TO MONITOR PT.
[2017-04-11] VITALS (8 sets, daily range): BP systolic 104–158; BP diastolic 61–93
[2017-04-11] MEDS: IPRATROPIUM NEB FS 0.5 MG/2.5 ML AMPUL.NEB NEB SCH ×7 (00:22→22:58)
[2017-04-11] MEDS: ALBUTEROL FS 2.5 MG/0.5 ML VIAL.NEB IH SCH ×7 (00:23→22:58)
[2017-04-11] MEDS: methylPREDNISolone SOD SUCC 125 MG/2ML VIAL IV SCH ×3 (05:13→21:21)
[2017-04-11] MEDS: BLOOD SUGAR DIAGNOSTIC 1 EACH STRIP IN SCH ×4 (06:40→21:34)
[2017-04-11] MEDS: INSULIN REGULAR, HUMAN 100 UNIT/ML 3 ML VIAL SQ PRN ×3 (06:41→16:53)
--- NOTE | 2017-04-11 06:41 | NUR ---
RN NOTES BLOOD SUGAR CHECKED 233 MG/DL, 8 UNITS REGULAR INSULIN GIVEN SUBCU.
--- NOTE | 2017-04-11 07:30 | NUR ---
RN NOTES PT ASLEEP, HOB ELEVATED, BREATHING REGULAR AND UNLABORED, NO SIGNS OF DISTRESS AND DISCOMFORT NOTED. ON O2 INHALATION AT 2LPM VIA NC AND TOLERATED WELL. VITAL SIGNS STABLE, AFEBRILE. NO COMPLAIN OF PAIN, NO EPISODE OF NAUSEA AND VOMITING.TELE MONITOR READS, A FIB WITH PVC'S WITH HEART RATE OF 85. ALL DUE MEDS GIVEN. ALL NEEDS MET. ENDORSED TO MORNING RN FOR CONTINUITY OF CARE.
--- NOTE | 2017-04-11 07:30 | NUR ---
ELECTROMECHANICAL TECHNICIAN NOTES PT ASLEEP, AROUSABLE TO NAME AND TOUCH. AO X 3, HOB ELEVATED, BREATHING REGULAR AND UNLABORED, NO SIGNS OF DISTRESS AND DISCOMFORT NOTED. ON O2 INHALATION AT 1LPM VIA NC AND TOLERATED WELL. TELEMETRY READS AFIB WITH PVCs HR 80s TO 100s, NO COMPLAIN OF PAIN, NO EPISODE OF NAUSEA AND VOMITING.DORIS MIDLINE FLUSHES WELL, SITE CLEAR. SAFETY MEASURES IN PLACE. CALL LIGHT WITHIN REACH. WILL CONTINUE TO MONITOR.
[2017-04-11 07:58] LABS: BASOPHILS # (AUTO) 0.1 /CMM (0.0-0.2); BASOPHILS % (AUTO) 0.3 % (0.0-2.0); HEMATOCRIT 38 % (39-51); HEMOGLOBIN 12.4 g/dL (13.5-17.5); LYMPHOCYTES # (AUTO) 0.3 /CMM (0.8-4.8); LYMPHOCYTES % (AUTO) 1.5 % (20.0-44.0); MEAN CORPUSCULAR HEMOGLOBIN 28 PG (26.0-33.0); MEAN CORPUSCULAR HGB CONC 33 g/dl (31.0-36.0); MEAN CORPUSCULAR VOLUME 87 fL (80-96); MONOCYTES # (AUTO) 0.5 /CMM (0.1-1.30); MONOCYTES % (AUTO) 2.7 % (2.0-12.0); NEUTROPHILS # (AUTO) 19.2 /CMM (1.8-8.9); NEUTROPHILS % (AUTO) 95.5 % (43.0-81.0); PLATELET COUNT (AUTO) 262 /CMM (150-450); RDW COEFFICIENT OF VARIATION 15.2 (11.5-15.0); WHITE BLOOD COUNT (AUTO) 20.1 K/uL (4.3-11.0)
[2017-04-11 08:14] LABS: CARBON DIOXIDE 39 mmol/L (21-32); CHLORIDE 103 mmol/L (98-107); CREATININE 1.2 mg/dL (0.6-1.3); GLUCOSE 257 mg/dL (74-106); MAGNESIUM 2.4 mg/dL (1.8-2.4); PHOSPHORUS 3.6 mg/dL (2.5-4.9); SODIUM SERUM 143 mmol/L (136-145); UREA NITROGEN, BLOOD 67 mg/dL (7-18)
[2017-04-11] MEDS: COLCHICINE 0.6 MG TABLET PO SCH (09:15)
[2017-04-11] MEDS: ASPIRIN EC 81 MG TABLET.DR PO SCH (09:16)
[2017-04-11] MEDS: PANTOPRAZOLE 40 MG TABLET.DR PO SCH (09:16)
[2017-04-11] MEDS: DOCUSATE SODIUM 100 MG CAPSULE PO SCH ×2 (09:16→16:45)
[2017-04-11] MEDS: TAMSULOSIN 0.4 MG CAP.SR.24H PO SCH (09:16)
[2017-04-11] MEDS: ATORVASTATIN 10 MG TABLET PO SCH (09:16)
[2017-04-11] MEDS: POTASSIUM CHLORIDE 20 MEQ TAB.PRT.SR PO SCH (09:16)
[2017-04-11] MEDS: LEVOTHYROXINE SODIUM 75 MCG TABLET PO SCH (09:16)
[2017-04-11] MEDS: GABAPENTIN 100 MG CAPSULE PO SCH ×2 (09:18→16:45)
[2017-04-11] MEDS: ALLOPURINOL 100 MG TABLET PO SCH (09:18)
[2017-04-11] MEDS: CLOTRIMAZOLE 1% 15 GM TUBE TP SCH ×2 (09:19→16:46)
--- NOTE | 2017-04-11 09:30 | NUR ---
MS RN NOTES DC TELEMETRY PER DR. GIBBS.
--- NOTE | 2017-04-11 09:40 | NUR ---
MS RN NOTES ADMINISTERED DUE MEDS.
[2017-04-11 12:00] LABS: IRON, SERUM 67 ug/dl (50-175); TOTAL IRON BINDING CAPACITY 314 ug/dl (250-450)
[2017-04-11] MEDS ORDERED: METOLAZONE 2.5 MG TABLET PO SCH (12:00)
[2017-04-11] MEDS ORDERED: BUMETANIDE INJ 8 MG in IV NS 0.9% 48 ML IV ONE (12:00)
[2017-04-11] MEDS: DIGOXIN 0.125 MG TABLET PO SCH (12:09)
[2017-04-11 12:10] LABS: FERRITIN 127 ng/mL (8-388)
--- NOTE | 2017-04-11 12:20 | NUR ---
MS RN NOTES ACCUCHECK DONE. BS 320 MG/DL. ADMINISTERED 16 UNITS HUM R PER SS.
[2017-04-11] MEDS ORDERED: IV SET PRIMARY PUMP SET 1 EA INFUS.SET MC ONE (12:37)
--- NOTE | 2017-04-11 16:54 | NUR ---
MS RN NOTES ACCUCHECK DONE. BS 314 MG/DL. ADMINISTERED 16 UNITS HUM R PER SS.
--- NOTE | 2017-04-11 18:30 | NUR ---
MS RN CLOSING NOTES PT RESTING IN BED, ASLEEP, AROUSABLE TO NAME AND TOUCH. AO X 3, HOB ELEVATED, BREATHING REGULAR AND UNLABORED, NO SIGNS OF DISTRESS AND DISCOMFORT NOTED. ON O2 INHALATION AT 1LPM VIA NC AND TOLERATED WELL. NO COMPLAIN OF PAIN, NO EPISODE OF NAUSEA AND VOMITING.DORIS MIDLINE FLUSHES WELL, SITE CLEAR. SAFETY MEASURES IN PLACE. CALL LIGHT WITHIN REACH. TURNED AND REPOSITIONED. PM CARE DONE. ALL NEEDS MET. WILL ENDORSE TO NEXT SHIFT FOR CAROLYN.
--- NOTE | 2017-04-11 19:15 | NUR ---
RN NOTES RECEIVED PT ASLEEP, HOB ELEVATED, NO SOB, NOT IN DISTRESS, ON O2 INHALATION AT 2LPM VIA NC AND TOLERATED WELL. PT ALERT AND ORIENTED X3, AMERICAN SPEAKING. VITAL SIGNS STABLE,DENIES ANY PAIN AND DISCOMFORT AT THIS TIME. RIGHT UPPER MIDLINE PATENT AND INTACT. WITH OVERHEAD TRAPEZE FOR REPOSITIONING. KEPT PT DRY AND CLEAN. KEPT BED IN THE LOWEST POSITION, LOCKED, SIDE RAILS X3 UP,WITH CALL LIGHT WITHIN EASY REACH. WILL CONTINUE TO MONITOR PT.
--- NOTE | 2017-04-11 20:00 | NUR ---
RN NOTES SON OF THE PT BROUGHT FOOD FROM HOME, PT DID NOT EAT. WILL OFFER FOOD AND SNACKS LATER.
[2017-04-11] MEDS: ENOXAPARIN SODIUM 40 MG/0.4 ML DISP.SYRIN SQ SCH (21:22)
--- NOTE | 2017-04-11 21:34 | NUR ---
RN NOTES BLOOD SUGAR CHECKED 171 MG/DL, NO INSULIN COVERAGE GIVEN BECAUSE PT DID NOT EAT DINNER AND DID NOT EAT THE FOOD BROUGHT BY THE FAMILY. NO SIGNS OF HYPOGLYCEMIA NOTED. WILL OFFER SNACKS AND WILL CONTINUE TO MONITOR PT.
[2017-04-12] MEDS: IPRATROPIUM NEB FS 0.5 MG/2.5 ML AMPUL.NEB NEB SCH ×5 (02:37→23:13)
[2017-04-12] MEDS: ALBUTEROL FS 2.5 MG/0.5 ML VIAL.NEB IH SCH ×5 (02:37→23:13)
[2017-04-12] MEDS: methylPREDNISolone SOD SUCC 125 MG/2ML VIAL IV SCH (05:30)
[2017-04-12] MEDS: BLOOD SUGAR DIAGNOSTIC 1 EACH STRIP IN SCH ×4 (06:29→22:13)
[2017-04-12] MEDS: INSULIN REGULAR, HUMAN 100 UNIT/ML 3 ML VIAL SQ PRN ×2 (06:31→17:14)
--- NOTE | 2017-04-12 06:31 | NUR ---
RN NOTES BLOOD SUGAR CHECKED 301 MG/DL, 16 UNITS OF REGULAR INSULIN GIVEN SUBCU . OFFERED AND ATE MIDNIGHT SNACKS AND TOLERATED WELL. WILL CONTINUE TO MONITOR.
--- NOTE | 2017-04-12 06:51 | NUR ---
RN NOTES PT ASLEEP, HOB ELEVATED, BREATHING REGULAR AND UNLABORED, NO SIGNS OF DISTRESS AND DISCOMFORT NOTED. ON O2 INHALATION AT 2LPM VIA NC AND TOLERATED WELL. VITAL SIGNS STABLE, AFEBRILE. NO COMPLAIN OF PAIN, NO EPISODE OF NAUSEA AND VOMITING. ALL DUE MEDS GIVEN. ALL NEEDS MET. ENDORSED TO MORNING RN FOR CONTINUITY OF CARE.
[2017-04-12 07:25] LABS: BASOPHILS % (AUTO) 0.1 % (0.0-2.0); HEMATOCRIT 42 % (39-51); HEMOGLOBIN 13.6 g/dL (13.5-17.5); LYMPHOCYTES # (AUTO) 0.5 /CMM (0.8-4.8); LYMPHOCYTES % (AUTO) 1.7 % (20.0-44.0); MEAN CORPUSCULAR HEMOGLOBIN 28 PG (26.0-33.0); MEAN CORPUSCULAR HGB CONC 32 g/dl (31.0-36.0); MEAN CORPUSCULAR VOLUME 87 fL (80-96); MONOCYTES # (AUTO) 0.5 /CMM (0.1-1.30); MONOCYTES % (AUTO) 1.7 % (2.0-12.0); NEUTROPHILS % (AUTO) 96.5 % (43.0-81.0); PLATELET COUNT (AUTO) 265 /CMM (150-450); RDW COEFFICIENT OF VARIATION 15.9 (11.5-15.0); RED BLOOD CELL COUNT(AUTO) 4.84 MIL/uL (4.5-6.0)
--- NOTE | 2017-04-12 07:30 | NUR ---
MS RN AM NOTES PT ASLEEP, AROUSABLE TO NAME AND TOUCH. AO X 3, HOB ELEVATED, BREATHING REGULAR AND UNLABORED, NO SIGNS OF DISTRESS AND DISCOMFORT NOTED. ON O2 INHALATION AT 1LPM VIA NC AND TOLERATED WELL. NO COMPLAIN OF PAIN, NO EPISODE OF NAUSEA AND VOMITING. DORIS MIDLINE G 20 FLUSHES WELL, SITE CLEAR. CDI DRESSING. SAFETY MEASURES IN PLACE. CALL LIGHT WITHIN REACH. WILL CONTINUE TO MONITOR.
[2017-04-12 07:54] LABS: CALCIUM, SERUM 9.1 mg/dL (8.5-10.1); CHLORIDE 99 mmol/L (98-107); CREATININE 1.3 mg/dL (0.6-1.3); GLUCOSE 313 mg/dL (74-106); PHOSPHORUS 3.8 mg/dL (2.5-4.9); POTASSIUM 3.9 mmol/L (3.5-5.1); UREA NITROGEN, BLOOD 74 mg/dL (7-18)
[2017-04-12 08:00] VITALS: BP 146/62
[2017-04-12 08:05] LABS: CARBON DIOXIDE 41 mmol/L (21-32)
[2017-04-12 08:10] LABS: SODIUM SERUM 144 mmol/L (136-145)
[2017-04-12] MEDS: ASPIRIN EC 81 MG TABLET.DR PO SCH (08:44)
[2017-04-12] MEDS: ALLOPURINOL 100 MG TABLET PO SCH (08:44)
[2017-04-12] MEDS: PANTOPRAZOLE 40 MG TABLET.DR PO SCH (08:45)
[2017-04-12] MEDS: COLCHICINE 0.6 MG TABLET PO SCH (08:45)
[2017-04-12] MEDS: ATORVASTATIN 10 MG TABLET PO SCH (08:45)
[2017-04-12] MEDS: LEVOTHYROXINE SODIUM 75 MCG TABLET PO SCH (08:45)
[2017-04-12] MEDS: DOCUSATE SODIUM 100 MG CAPSULE PO SCH ×2 (08:45→17:08)
[2017-04-12] MEDS: TAMSULOSIN 0.4 MG CAP.SR.24H PO SCH (08:45)
[2017-04-12] MEDS: GABAPENTIN 100 MG CAPSULE PO SCH ×2 (08:45→17:08)
--- NOTE | 2017-04-12 08:45 | NUR ---
MS RN NOTES DR. GIBBS AWARE OF CRITICAL LAB FOR CO2 AT 41%.
[2017-04-12] MEDS: CLOTRIMAZOLE 1% 15 GM TUBE TP SCH ×2 (08:47→17:08)
--- NOTE | 2017-04-12 09:30 | NUR ---
MS RN NOTES ADMINISTERED DUE MEDS.
--- NOTE | 2017-04-12 09:45 | NUR ---
MS RN NOTES PATIENT OOB, SITTING IN THE CHAIR. PHY THERAPIST STANDING BY.
--- NOTE | 2017-04-12 10:33 | NUR ---
MS RN NOTES PT BACK IN BED. BED SCALED. ZERO SCALE. WEIGHED. 201 LBS.
--- NOTE | 2017-04-12 11:50 | NUR ---
MS MALLOY NOTES JAD SIMPSON. BS 301 MG/DL. ADMINISTERED 8 UNITS HUM R PER SS. Addendum: 04/12/17 at 1717 by SHERIDAN MARIE RN CORRECTION SN ADMINISTERED 16 UNITS HUM R PER SLIDING SCALE.
[2017-04-12 12:00] VITALS: BP 118/77
[2017-04-12] MEDS: *INSULIN REGULAR(HUMULIN R)HUM 100 UNIT/ML VIAL SQ PRN ×2 (12:00→22:16)
[2017-04-12] MEDS: DIGOXIN 0.125 MG TABLET PO SCH (12:11)
[2017-04-12] MEDS: ACETAMINOPHEN 325 MG TABLET PO PRN (13:59)
[2017-04-12 16:00] VITALS: BP 153/59
--- NOTE | 2017-04-12 17:12 | NUR ---
MS RN NOTES ACCUCHECK DONE. BS 240 MG/DL. ADMINISTERED 8 UNITS HUM R PER SS.
[2017-04-12 18:00] VITALS: BP 153/59
--- NOTE | 2017-04-12 19:35 | NUR ---
MS/RN NOTES RECEIVED PT. SITTING UP IN BED. PT. IS AWAKE, ALERT AND ORIENTED X3. BREATHING EVEN AND UNLABORED ON 1PM O2 VIA NC. PT. CURRENTLY RECEIVING BREATHING TREATMENT. NO SOB, RESPIRATORY DISTRESS OR COMPLAINTS OF PAIN NOTED AT THIS TIME. PT. WITH RIGHT UPPER ARM MIDLINE PRESENT, PATENT AND INTACT. NO S/S OF HYPO/HYPERGLYCEMIA NOTED AT THIS TIME. BED IN LOWEST POSITION, CALL LIGHT WITHIN REACH, WILL CONTINUE TO MONITOR.
[2017-04-12 20:36] VITALS: BP 120/74
[2017-04-12] MEDS: ENOXAPARIN SODIUM 40 MG/0.4 ML DISP.SYRIN SQ SCH (21:08)
[2017-04-13] MEDS: ACETAMINOPHEN 325 MG TABLET PO PRN ×2 (01:23→10:25)
[2017-04-13] MEDS: ALBUTEROL FS 2.5 MG/0.5 ML VIAL.NEB IH SCH ×4 (03:15→15:24)
[2017-04-13] MEDS: IPRATROPIUM NEB FS 0.5 MG/2.5 ML AMPUL.NEB NEB SCH ×4 (03:15→15:24)
[2017-04-13] MEDS: BLOOD SUGAR DIAGNOSTIC 1 EACH STRIP IN SCH ×2 (06:31→12:33)
[2017-04-13] MEDS: *INSULIN REGULAR(HUMULIN R)HUM 100 UNIT/ML VIAL SQ PRN ×2 (06:38→12:34)
--- NOTE | 2017-04-13 06:45 | NUR ---
MS/RN NOTES PT. LYING IN BED RESTING. BREATHING EVEN AND UNLABORED ON 1PM O2 VIA NC. PT. NO SOB, RESPIRATORY DISTRESS OR COMPLAINTS OF PAIN NOTED AT THIS TIME. PT. WITH RIGHT UPPER ARM MIDLINE PRESENT, PATENT AND INTACT. NO S/S OF HYPO/HYPERGLYCEMIA NOTED AT THIS TIME. ALL PT. NEEDS MET. PT. OFFLOADED. TURNED AND REPOSITIONED Q2H AND NEEDED. BED IN LOWEST POSITION, CALL LIGHT WITHIN REACH, WILL ENDORSE TO DAYSHIFT NURSE FOR CONTINUITY OF CARE.
[2017-04-13 07:17] LABS: EOSINOPHILS % (AUTO) 0.1 % (0.0-6.0); HEMATOCRIT 43 % (39-51); HEMOGLOBIN 13.6 g/dL (13.5-17.5); LYMPHOCYTES # (AUTO) 1.1 /CMM (0.8-4.8); LYMPHOCYTES % (AUTO) 3.7 % (20.0-44.0); MEAN CORPUSCULAR HEMOGLOBIN 28 PG (26.0-33.0); MEAN CORPUSCULAR HGB CONC 32 g/dl (31.0-36.0); MEAN CORPUSCULAR VOLUME 87 fL (80-96); MONOCYTES # (AUTO) 0.7 /CMM (0.1-1.30); MONOCYTES % (AUTO) 2.5 % (2.0-12.0); NEUTROPHILS # (AUTO) 28.2 /CMM (1.8-8.9); NEUTROPHILS % (AUTO) 93.7 % (43.0-81.0); PLATELET COUNT (AUTO) 260 /CMM (150-450); RDW COEFFICIENT OF VARIATION 15.9 (11.5-15.0); RED BLOOD CELL COUNT(AUTO) 4.95 MIL/uL (4.5-6.0)
--- NOTE | 2017-04-13 07:25 | NUR ---
ms rn initial notes Received patient in bed, awake, head of bed elevated, no SOB or distress noted, on 02 @ 1lpm via NC and tolerated well. Patient is alert and oriented x 2, turkmen speaking. IV intact and patent. Kept patient clean and comfortable in bed, call light with in patient reach, will continue to monitor accordingly.
[2017-04-13 07:31] LABS: ALANINE AMINOTRANSFERASE 19 U/L (12-78); ALBUMIN 2.8 g/dL (3.4-5.0); ALKALINE PHOSPHATASE 101 U/L (46-116); ASPARTATE AMINOTRANSFERASE 16 U/L (15-37); BILIRUBIN,TOTAL 1.4 mg/dL (0.2-1.0); CHLORIDE 94 mmol/L (98-107); CREATININE 1.5 mg/dL (0.6-1.3); GLUCOSE 283 mg/dL (74-106); MAGNESIUM 1.9 mg/dL (1.8-2.4); PHOSPHORUS 2.8 mg/dL (2.5-4.9); POTASSIUM 3.7 mmol/L (3.5-5.1); SODIUM SERUM 141 mmol/L (136-145); TOTAL PROTEIN, SERUM 6.9 g/dL (6.4-8.2)
[2017-04-13 07:41] LABS: CARBON DIOXIDE 40 mmol/L (21-32); UREA NITROGEN, BLOOD 80 mg/dL (7-18)
[2017-04-13 08:00] VITALS: BP 137/84
[2017-04-13] MEDS: DOCUSATE SODIUM 100 MG CAPSULE PO SCH (08:28)
[2017-04-13] MEDS: TAMSULOSIN 0.4 MG CAP.SR.24H PO SCH (08:28)
[2017-04-13] MEDS: ATORVASTATIN 10 MG TABLET PO SCH (08:28)
[2017-04-13] MEDS: LEVOTHYROXINE SODIUM 75 MCG TABLET PO SCH (08:28)
[2017-04-13] MEDS: PANTOPRAZOLE 40 MG TABLET.DR PO SCH (08:28)
[2017-04-13] MEDS: GABAPENTIN 100 MG CAPSULE PO SCH (08:28)
[2017-04-13] MEDS: ALLOPURINOL 100 MG TABLET PO SCH (08:29)
[2017-04-13] MEDS: ASPIRIN EC 81 MG TABLET.DR PO SCH (08:31)
[2017-04-13 08:33] LABS: BAND % (MANUAL) 7 % (0.0-5.0); EOSINOPHILS % (MANUAL) 1 % (0-4); LYMPHOCYTES % (MANUAL) 4 % (16-48); MONOCYTES % (MANUAL) 8 % (0-11.0); NEUTROPHILS % (MANUAL) 80 (42-76)
[2017-04-13] MEDS: CLOTRIMAZOLE 1% 15 GM TUBE TP SCH (08:35)
[2017-04-13] MEDS ORDERED: predniSONE 20 MG TABLET PO SCH (09:00)
[2017-04-13] MEDS ORDERED: PRED20TA PO (12:01)
[2017-04-13] MEDS: DIGOXIN 0.125 MG TABLET PO SCH (12:34)
--- NOTE | 2017-04-13 16:30 | NUR ---
MS SWAGE TOOLSETTER NOTES Discharge instructions given to patient daughter due to patient having periods of confusion and able to understand instructions and aware patient going to [place] [facility]. Discharge paper and belonging list signed by 2 nurses due to patient condition. Pictures taken and filed in the chart. Flu vaccine is out of season. Pneumonia vaccine refused, explained the risk and benefits x 3 and still refused. Patient left via gurney accompanied by 2 EMT's in stable condition, no complaint of pain or discomfort. [facility] and report given. DORIS midline in placed and patent, informed yamilet (RN) and aware. Vital signs checked and recorded.
[2017-04-14] MEDS ORDERED: predniSONE 10 MG TABLET PO SCH (09:00)
== END 2017-04-13 16:30 | DRG 291 ==
LOC: ER 13:40 → TELE1 15:32 → MEDSG1 03-31 10:08 → TELE-TD 04-02 19:28 → TELE1 04-03 13:22 → TELE-TD 04-03 19:00 → ICUOV 04-07 14:30 → ICU 04-07 18:23 → MED 04-09 16:02 → TELE 04-09 21:43 → MED 04-11 13:04
PROVIDERS: ADMIT Internal Medicine; ATTEND Internal Medicine
PROC: 05H533Z Insertion of Infusion Device into Right Subclavian Vein, Percutaneous Approach (ICD-10-PCS; principal; 2017-03-30)
PROC: 5A09357 Assistance with Respiratory Ventilation, Less than 24 Consecutive Hours, Continuous Positive Airway Pressure (ICD-10-PCS; 2017-04-07)
DX: I13.0 Hypertensive heart and chronic kidney disease with heart failure and stage 1 through stage 4 chronic kidney disease, or unspecified chronic kidney disease (principal); I50.43 Acute on chronic combined systolic (congestive) and diastolic (congestive) heart failure; J96.21 Acute and chronic respiratory failure with hypoxia; J96.22 Acute and chronic respiratory failure with hypercapnia; N17.0 Acute kidney failure with tubular necrosis; E11.00 Type 2 diabetes mellitus with hyperosmolarity without nonketotic hyperglycemic-hyperosmolar coma (NKHHC); D68.59 Other primary thrombophilia; E87.4 Mixed disorder of acid-base balance; J44.1 Chronic obstructive pulmonary disease with (acute) exacerbation; E66.2 Morbid (severe) obesity with alveolar hypoventilation; E11.22 Type 2 diabetes mellitus with diabetic chronic kidney disease; N18.9 Chronic kidney disease, unspecified; E03.9 Hypothyroidism, unspecified; E11.65 Type 2 diabetes mellitus with hyperglycemia; E78.5 Hyperlipidemia, unspecified; I48.91 Unspecified atrial fibrillation; M19.90 Unspecified osteoarthritis, unspecified site; M85.80 Other specified disorders of bone density and structure, unspecified site; Z87.891 Personal history of nicotine dependence; I25.10 Atherosclerotic heart disease of native coronary artery without angina pectoris; Z95.1 Presence of aortocoronary bypass graft; D63.8 Anemia in other chronic diseases classified elsewhere; Z68.29 Body mass index [BMI] 29.0-29.9, adult; R00.1 Bradycardia, unspecified; Z91.19 Patient's noncompliance with other medical treatment and regimen; M10.9 Gout, unspecified; L98.8 Other specified disorders of the skin and subcutaneous tissue; L53.8 Other specified erythematous conditions; S91.105A Unspecified open wound of left lesser toe(s) without damage to nail, initial encounter; X58.XXXA Exposure to other specified factors, initial encounter; Y93.9 Activity, unspecified; Y92.009 Unspecified place in unspecified non-institutional (private) residence as the place of occurrence of the external cause; I35.0 Nonrheumatic aortic (valve) stenosis; I34.0 Nonrheumatic mitral (valve) insufficiency; T50.2X5A Adverse effect of carbonic-anhydrase inhibitors, benzothiadiazides and other diuretics, initial encounter; T38.0X5A Adverse effect of glucocorticoids and synthetic analogues, initial encounter
CPT/HCPCS: 36415; 36569; 36600; 71010-TC; 73564-TC; 73630-TC; 76604-TC; 80048-TC; 80053-TC; 80076-TC; 80162-TC; 82140-TC; 82728-TC; 82803-TC; 82962-TC; 83540-TC; 83605-TC; 83735-TC; 83880; 83935-TC; 84100-TC; 84484-TC; 84550-TC; 85025-TC; 85610-TC; 85730-TC; 87040-TC; 87081-TC; 93307-TC; 93970-TC; 94660; 94762-TC; 94799-TC; 97001-TC; 97116-TC; 97530-TC; 99082-TC; A4216; A4349; A4606; J1120; J1650; J1815; J1940; J2930; J3475; J3490; J7050; J7060; Z7610